=== PATIENT | male | born 1960 | race Caucasian/White ===

== ENCOUNTER 2024-02-20 06:39 | Day surgery (SDC) | payer BC, SELFPAY ==
[2024-02-20] VITALS (9 sets, daily range): BP systolic 117–144; BP diastolic 73–93; BMI 22.6
[2024-02-20 12:43] LABS: Glucose - Point of Care 95 mg/dl (70-99)
[2024-02-20] MEDS: NORMOSOL-R 1000 IV (12:43)
--- NOTE | 2024-02-20 14:48 | W.SUR.PREOP ---
Pre-Operative Surgical Note
-
I have examined this patient prior to the performance of the scheduled procedure.
The patient's condition is unchanged from the time of the current History and
Physical and the patient is able to undergo the scheduled procedure.
--- NOTE | 2024-02-20 14:48 | W.IMMPOSTOP ---
Surgical Immed Post Op Note
-
Primary Surgeon: Dr. Jenni Malone DMD, MD
Assisting Surgeon: None
Pre-op Diagnosis: Benign maxillary cyst/lesion
Post-op Diagnosis: Benign maxillary cyst/lesion
Procedure Performed: Excisional biopsy of anterior maxillary well circumscribed radiolucent cyst/lesion with enucleation and curettage
Anesthesia Type: General anesthesia with oral ray ETT
Specimen / Cultures: Anterior maxillary cyst/lesion
Estimated Blood Loss: 5cc
Complications: None
Operative Findings: Excisional biopsy of anterior maxillary cyst/lesion
[2024-02-20 15:13] LABS: Glucose - Point of Care 107 mg/dl (70-99)
== END 2024-02-20 16:48 | disposition home or self-care (01) ==
LOC: SDS 06:39
PROVIDERS: ATTENDING PHYSICIAN Dentist Oral and Maxillofacial Surgery
DX: D16.4 Benign neoplasm of bones of skull and face (principal)
CPT/HCPCS: 21030; 88305; 82962

== ENCOUNTER → 2024-09-29 08:44 | Outpatient (REF) | payer MEDICARE, SELFPAY | LOC: PAVMRI 08:44 | PROVIDERS: ATTENDING PHYSICIAN Nurse Practitioner Family; FAMILY PHYSICIAN Internal Medicine | DX: M54.50 Low back pain, unspecified (principal) | CPT/HCPCS: 72148 ==

== ENCOUNTER → 2024-10-12 07:55 | Outpatient (REF) | payer MEDICARE, SELFPAY | LOC: HWRAD 07:55 | PROVIDERS: ATTENDING PHYSICIAN Internal Medicine Cardiovascular Disease; FAMILY PHYSICIAN Internal Medicine | DX: I71.40 Abdominal aortic aneurysm, without rupture, unspecified (principal) | CPT/HCPCS: 76770 ==

== ENCOUNTER → 2024-10-26 12:53 | Outpatient (REF) | payer MEDICARE, SELFPAY | LOC: RAD 12:53 | PROVIDERS: ATTENDING PHYSICIAN Surgery Vascular Surgery; FAMILY PHYSICIAN Internal Medicine | DX: R29.898 Other symptoms and signs involving the musculoskeletal system (principal) | CPT/HCPCS: 93925 ==

== ENCOUNTER → 2024-11-06 08:46 | Outpatient (REF) | payer MEDICARE, SELFPAY | LOC: RAD 08:46 | PROVIDERS: ATTENDING PHYSICIAN Surgery Vascular Surgery; FAMILY PHYSICIAN Internal Medicine | DX: I71.43 Infrarenal abdominal aortic aneurysm, without rupture (principal) | CPT/HCPCS: 74174; Q9967 ==

== ENCOUNTER → 2024-11-20 12:38 | Outpatient (REF) | payer MEDICARE, SELFPAY | LOC: PAVMRI 12:38 | PROVIDERS: FAMILY PHYSICIAN Internal Medicine | DX: K86.2 Cyst of pancreas (principal) | CPT/HCPCS: 74183; A9575 ==

== ENCOUNTER 2024-12-20 07:53 | Inpatient (IN) | payer MEDICARE, SELFPAY ==
[2024-12-17 10:56] VITALS: BMI 25.0
[2024-12-17 11:31] LABS: % Eosinophils 7.5 % (0-6); % Immature Granulocytes 0.4 % (0-0.5); % Lymphocytes 23.4 % (20.5-51.1); % Monocytes 10.4 % (1.7-9.3); % Neutrophils 57.3 % (42.2-75.2); Absolute Basophils 0.1 10^3/uL (0-0.2); Absolute Eosinophils 0.4 10^3/uL (0-0.7); Absolute Lymphocytes 1.2 10^3/uL (1.2-3.4); Absolute Monocytes 0.5 10^3/uL (0.1-0.6); Absolute Neutrophils 2.8 10^3/uL (1.4-6.5); Hematocrit 42.2 % (39.0-52.0); Hemoglobin 13.8 g/dL (13.0-18.0); Mean Corp Hgb Conc. 32.7 g/dL (33.0-37.0); Mean Corpuscular Hgb 29.9 pg (27.0-31.0); Mean Corpuscular Volume 91.3 fL (80.0-94.0); Mean Platelet Volume 9.7 fL (7.4-10.4); Nucleated Red Blood Cells % 0 % (-); Platelet Count 176 10^3/uL (130-400); Red Blood Cell Count 4.62 10^6/uL (4.70-6.10); Red Cell Dist. Width 12.9 % (11.5-14.5); White Blood Cell Count 4.9 10^3/uL (4.8-10.8)
[2024-12-17 11:40] LABS: INR 0.92; PT 12.7 Sec (11.4-14.6)
[2024-12-17 11:41] LABS: APTT 31.3 Sec (23.4-35.0)
[2024-12-17 12:11] LABS: Blood Urea Nitrogen 17 mg/dl (9-20); Calcium 10.1 mg/dl (8.4-10.2); Carbon Dioxide 31 mmol/L (22-30); Chloride 101 mmol/L (98-107); Estimated Creatinine Clearance 90 ml/min; Glucose 100 mg/dl (70-99); Sodium 140 mmol/L (135-145); eGFR > 60.00
[2024-12-20] VITALS (25 sets, daily range): BP systolic 113–135; BP diastolic 71–92; BMI 24.8
[2024-12-20] MEDS: PERIDEX 0.12% ORAL RINSE 15 ML PO (08:55)
[2024-12-20] MEDS: BACTROBAN NASAL 1 GRAM NASAL (08:55)
[2024-12-20] MEDS: NSS 500 IV (08:56)
[2024-12-20 09:20] LABS: Glucose - Point of Care 105 mg/dl (70-99)
--- NOTE | 2024-12-20 13:06 | W.SUR.POST ---
Surgical Immediate Post Op
Note
Pre Op Diagnosis: AAA
Post Op Diagnosis: AAA
Procedure Performed: EVAR
Primary Surgeon: Solitario
Assist: Edgard ROD
Anesthesia: General
Estimated Blood Loss: 25cc
Fluids: See anesthesia flowsheet
Drains/Shunts: None
Specimens/Cultures: None
Doppler/Duplex/Angio (Y/N): Yes
Complications: None
Operative Findings: No endoleak
[2024-12-20 14:13] LABS: INR 1.07; PT 14.4 Sec (11.4-14.6)
[2024-12-20 14:14] LABS: APTT 35.7 Sec (23.4-35.0)
[2024-12-20 14:16] LABS: Hematocrit 36.8 % (39.0-52.0); Hemoglobin 12.4 g/dL (13.0-18.0); Mean Corp Hgb Conc. 33.7 g/dL (33.0-37.0); Mean Corpuscular Hgb 30.4 pg (27.0-31.0); Mean Corpuscular Volume 90.2 fL (80.0-94.0); Mean Platelet Volume 9.7 fL (7.4-10.4); Platelet Count 146 10^3/uL (130-400); Red Blood Cell Count 4.08 10^6/uL (4.70-6.10); Red Cell Dist. Width 12.7 % (11.5-14.5); White Blood Cell Count 7.5 10^3/uL (4.8-10.8)
[2024-12-20 14:20] LABS: Blood Urea Nitrogen 14 mg/dl (9-20); Calcium 8.4 mg/dl (8.4-10.2); Carbon Dioxide 26 mmol/L (22-30); Chloride 107 mmol/L (98-107); Estimated Creatinine Clearance 101 ml/min; Glucose 124 mg/dl (70-99); Potassium 4.3 mmol/L (3.5-5.1); Sodium 138 mmol/L (135-145); eGFR > 60.00
--- NOTE | 2024-12-20 15:17 | OR.RPT ---
Operative Report
Operative Report
PROCEDURE DATE: 12/20/2024
Preoperative diagnosis: Saccular irregular abdominal aortic aneurysm/pseudoaneurysm.
Postoperative diagnosis: Same
Procedure:
1. Endovascular repair of abdominal aortic aneurysm with aortobiiliac endograft (Endologix AFX-2 [id number] bifurcated device) with proximal infrarenal endograft extension (Endologix A25-25/C75 V proximal aortic extension).
2. Percutaneous right common femoral artery closure with preclose technique.
3. Pro-glide percutaneous suture closure left common femoral artery puncture site.
4. Supervision and interpretation.
Surgeon: Solitario
Sports Broadcaster: AMMON Rene, required for all aspects of procedure including assistance with stent delivery/wire manipulation/closure.
Complications: None
Anesthesia: General
Fluoroscopy:
Time 10.9 minutes
Dose 127 mGy
DAP 37.58
Indications for procedure:
Abdominal aortic aneurysm with concerning saccular morphology, evidence of plaque rupture or pseudoaneurysm with very irregular morphology, raise concern for imminent or eventual rupture. Recommended endovascular repair. Risk/benefits/alternatives
also discussed. Patient understood all wish to proceed.
Description of procedure:
Patient was identified brought to the operating room placed on the table in supine position. After the adequate administration of anesthesia and perioperative antibiotics he was prepped and draped in the standard surgical fashion. A standard
preoperative timeout was undertaken and everybody was in agreement the plan. Bilateral common femoral artery access was obtained under direct duplex ultrasound guidance. 6 Dominican sheath was placed over 0.035 inch wire in the right groin. In the
left groin, 7 Dominican sheath was placed. A small 1 cm incision was made around the right sided sheath access, and blunt dissection was undertaken with hemostats to facilitate percutaneous suture delivery. Next, using the ProGlide suture system,
percutaneous sutures were deployed at the 10:00 and 2 o'clock position on the right side in the standard fashion. Suture strands were tagged outside the skin. I exchanged for a short 11 Dominican sheath in that right groin access over the wire.
Next, I advanced a pigtail catheter through the 11 Dominican sheath into the abdominal aorta. In order to gain better length measurements and decision for graft selection, and performed power injection aortography. This demonstrated patent infrarenal
aorta with patent bilateral renal arteries, the left renal artery being the lower. Saccular irregular aneurysm as noted on CT scan imaging. Based on my imaging, I felt we could try to use a single main body device but may need to extend more
proximally. Therefore, I next exchanged my right-sided 11 Dominican sheath for an Endologix 17 Dominican sheath which was advanced into the aorta under fluoroscopy.
I now loaded the [id number] bifurcated Endologix AFX graft ([id number]) onto the stiff wire (right sided access) and then advance the affixed contralateral wire through the AFX introducer sheath. The contralateral wire was snared through
the left sided access and brought out through the contralateral left side. The AFX 2 bifurcated device was transferred into the AFX introducer sheath and advanced under fluoroscopy until the distal limbs were above the aortic bifurcation thereby
releasing the limbs of the graft. Confirmation was again performed noting no evidence of wire wrap. With concomitant downward tension on the left sided through and through wire and the right sided main body, the bifurcated graft was seated on the
aortic bifurcation. I then pulled the rip cord to deploy the main body of the endograft. The yellow covering was then pulled over the left wire (contralateral wire) thereby deploying the contralateral iliac limb. Once this was done, a pigtail
catheter was advanced over the left sided contralateral wire access and forward pressure was applied while pulling the wire back to release the wire lock. The pigtail catheter was then advanced into the juxtarenal aorta. Of note, earlier the
patient had been given an appropriate dose of heparin.
Next the ipsilateral iliac limb deployment was completed by pinning the inner core and retracting the introducer sheath. Next, the inner core was retracted into the sheath. Power injection aortography was performed after using a Coda balloon to
balloon molded proximal seal and to the right iliac. Aortogram demonstrated good sealing proximally distally with no evidence of endoleak, and no further filling of the aneurysm sac. However given the proximal extent of the endograft and a
curvature of the aorta, I felt that extending up closer to the renal arteries would be of benefit to be beyond that area of curvature, and also to provide better coverage overall. Therefore, the sheath and inner core was then advanced into the
juxtarenal aorta. The inner core and delivery system was then removed maintaining the sheath in place. Next, we advanced the proximal aortic extension which was an infrarenal extension (A25-25/C75 V). Once this was positioned in the vicinity of
the renal arteries, power injection aortography was obtained. Bilateral renal arteries were marked on the screen (left was lower). Intentionally, the graft was initially unsheathed slightly high and then carefully pulled down so that it was
positioned about 2 cm inferior to left renal artery (I did not wish to challenge the renal artery given along neck here). Deployment/unsheathing then was completed, and delivery mechanism was removed from the sheath. The contralateral accessed
pigtail catheter had been pulled down and then readvanced into the suprarenal segment. Coda balloon was then inserted and proximal and distal seal zones and overlap seal zones balloon molded. Completion angiography now demonstrated excellent
positioning of the endograft with good filling of both renal arteries, good apposition of the proximal and distal seals, good filling of both internal and external iliac arteries. No filling of the aneurysm sac was noted. No endoleak was noted.
At this point I was very satisfied.
Next, I removed the right sided 17 Dominican sheath while cinching down the percutaneous sutures. Once hemostasis was noted the wire was then withdrawn, the knot was tightened with a knot pusher. Hemostasis was fully achieved. The knot was then
locked and the suture strands trimmed. On the left side, I exchanged the 7 Dominican sheath over a [employer] wire for a Pro-glide percutaneous suture delivery device. Pro-glide percutaneous suture was not was then cinched down to the artery. Knot was
pushed down with a knot pusher. The knot was locked. Hemostasis was fully achieved bilateral groins with good femoral pulses bilaterally. Protamine was given to reverse the heparin. The small right groin skin incisions was then closed with 4-0
Monocryl subcuticular stitch and Dermabond was applied. Dressing applied to left groin puncture site. Patient tolerated procedure well. He had palpable 2+ DP pulses bilaterally upon completion.
[2024-12-20] MEDS: NSS 1000 IV (16:34)
[2024-12-20 16:41] LABS: Glucose - Point of Care 137 mg/dl (70-99)
--- NOTE | 2024-12-20 17:02 | PTCARENOTE ---
Received pt from PACU. AOx3, drowsy. Reports mild 3/10 burning pain in martir groins. Martir groins noted, R groin Dermabond intact, L w/ gauze and Tegaderm c/d/i. Vascular checks wnl. A line w/ good waveform, NIBP 20 points lower than a line, wnl. Family
at bedside. Updated.
--- NOTE | 2024-12-20 18:45 | CON.INTV ---
Consultation
Consultation Request
Date/Time Consultation Requested: 12/20/2024 - 1300
Date/Time Consultation Performed: 12/20/2024 - 1328
Requesting Provider: MARCEL Campoverde
Performing Provider: Dr. Diamond
Reason for Consultation: s/p EVAR
Medical History
-
Chief Complaint: Elective EVAR
History of Present Illness:
64-year-old male non-smoker with a past medical history of hyperlipidemia, hypertension, CAD with history of stent to OM1, ED, history of bradycardia, AAA and VIKY on CPAP who presents for endovascular aortic aneurysm repair. Patient known to
vascular surgery service with last visit on 11/27/[address] Jerez. Patient has a known infrarenal abdominal aortic aneurysm. CTA abdomen/pelvis from 11/06/2024 showed a saccular aneurysm of the posterior aspect of the left side of the infrarenal
abdominal aorta measuring 10 x 2.6 x 2.2 cm with a 6.5 mm ulcerated plaque at the anterolateral aspect of the left side of the abdominal aorta just lateral to the KORY origin. Also a 12 mm ulcerated plaque just below the level of the saccular
aneurysm along the left posterolateral aspect of the aorta and a 13 mm ulcerated plaque at the posterior margin of the aorta. Vascular intervention was recommended and patient agreed to this procedure. Today he underwent an endovascular repair of
his abdominal aortic aneurysm with aortobiiliac endograft with proximal infrarenal endograft extension. There were no immediate complications. Patient was transferred to the ICU postoperatively for further care, and Web Marketing Specialist services consulted
for additional management/recommendations.
Patient arrived to the ICU at 1702 on 12/20/2024. When I saw the patient, he was resting in bed in no acute distress. Heart rate 62, BP 120/66 and saturating 92% on room air. He feels well, denying FRAUSTO, abdominal pain, shortness of pain, chest
pain, fevers or chills.
PMHx: CAD, hypertension, hyperlipidemia, DM type II, depression, VIKY on CPAP, glaucoma, fatty liver disease, ED, colonic polyps, heterozygous alpha 1 antitrypsin deficiency, history of Lyme disease
PSHx: PTCA stent in OM1, appendectomy, sinus surgery, tonsillectomy
Past Medical History
Past Medical History: Other (Above as per HPI)
Past Surgical History: Other (Above as per HPI)
Social History
Tobacco: Non-smoker
Alcohol: None
Drug: None
Personal:
Living: With Family
Family History
Family History: CAD (Sibling), Cancer (Father: Colon cancer) and Other (Father: Hyperlipidemia; Mother: Dementia)
Allergies / Home Medications
Allergies
Allergy/AdvReac Type Severity Reaction Status Date / Time
house dust Allergy Unknown Verified 12/20/24 08:29
lisinopril Allergy Unknown Verified 12/20/24 08:29
methylprednisolone Allergy Rash Verified 12/20/24 08:29
[From Solu-Medrol]
mold Allergy Unknown Verified 12/20/24 08:29
pollen extracts Allergy Unknown Verified 12/20/24 08:29
prednisone Allergy Rash Verified 12/20/24 08:29
Home Medications
�Medication �Instructions �Recorded �Confirmed �Last Taken �Type
coenzyme Q10 100 mg capsule (Co 100 mg PO DAILY 02/15/24 12/20/24 12/19/24 08:00 History
Q-10)
latanoprost 0.005 % eye drops 1 drp ophthalmic (eye) HS 02/15/24 12/20/24 12/19/24 21:00 History
metformin 1,000 mg tablet 1,000 mg PO BID 02/15/24 12/20/24 12/18/24 History
omega 4-kic-kvn-fish oil 1,000 mg 1 cap PO DAILY 02/15/24 12/20/24 12/19/24 08:00 History
(120 mg-180 mg) capsule (Fish Oil)
rosuvastatin 40 mg tablet 40 mg PO DAILY 02/15/24 12/20/24 12/19/24 08:00 History
silodosin 8 mg capsule 8 mg PO DAILY 02/15/24 12/20/24 12/19/24 08:00 History
timolol maleate (PF) 0.5 % eye 1 drp ophthalmic (eye) DAILY 02/15/24 12/20/24 12/19/24 08:00 History
drops in a dropperette
venlafaxine 75 mg capsule,extended 75 mg PO DAILY 02/15/24 12/20/24 12/19/24 08:00 History
release 24 hr
cholecalciferol (vitamin D3) 125 125 mcg PO DAILY 12/11/24 12/20/24 12/19/24 08:00 History
mcg (5,000 unit) tablet (Vitamin
D3)
ezetimibe 10 mg tablet 10 mg PO DAILY 12/11/24 12/20/24 12/19/24 08:00 History
ipratropium bromide 42 mcg (0.06 1 spray intranasal R BID 12/11/24 12/20/24 12/20/24 07:00 History
%) nasal spray
olopatadine 665 mcg-mometasone 25 2 spray intranasal BID 12/11/24 12/20/24 12/20/24 07:00 History
mcg/spray nasal spray (Ryaltris)
aspirin 81 mg chewable tablet 81 mg PO DAILY 12/20/24 12/20/24 12/20/24 07:00 History
Review of Systems
-
History Source: Patient
All other systems: Negative unless noted
Vitals / Labs / Diagnostic Testing
Vital Signs
Temp Pulse Resp BP Pulse Ox
98.6 F 59 12 132/80 96
12/20/24 16:15 12/20/24 17:30 12/20/24 17:30 12/20/24 17:30 12/20/24 17:30
Lab Data
12/20/24 13:48
12/20/24 13:48
Laboratory Results
12/20/24
13:48
PT 14.4
INR 1.07
APTT 35.7 H
Diagnostic Testing:
Physical Exam
-
HEENT: Normocephalic and Anicteric
Cardiovascular: S1/S2 and Peripheral Edema (negative)
Respiratory: Clear, Wheeze (negative), Rales (negative), Rhonchi (negative) and Non-Labored Respirations
GI: Soft, Non Distended, Non Tender and Normal Bowel Sounds
Neurology: AO x 3 and Tremors (negative)
Skin: Warm and Dry
General: Respiratory Distress (negative), Comfortable, Fever (negative) and Chills (negative)
Assessment
-
Assessment: 64-year-old male non-smoker with a past medical history of hyperlipidemia, hypertension, CAD with history of stent to OM1, ED, history of bradycardia, AAA and VIKY on CPAP who presents for endovascular aortic aneurysm repair. Patient
known to vascular surgery service with last visit on 11/27/[address] Jerez. Patient has a known infrarenal abdominal aortic aneurysm. CTA abdomen/pelvis from 11/06/2024 showed a saccular aneurysm of the posterior aspect of the left side of the
infrarenal abdominal aorta measuring 10 x 2.6 x 2.2 cm with a 6.5 mm ulcerated plaque at the anterolateral aspect of the left side of the abdominal aorta just lateral to the KORY origin. Also a 12 mm ulcerated plaque just below the level of the
saccular aneurysm along the left posterolateral aspect of the aorta and a 13 mm ulcerated plaque at the posterior margin of the aorta. Vascular intervention was recommended and patient agreed to this procedure. Today he underwent an endovascular
repair of his abdominal aortic aneurysm with aortobiiliac endograft with proximal infrarenal endograft extension. There were no immediate complications. Patient was transferred to the ICU postoperatively for further care, and Web Marketing Specialist services
consulted for additional management/recommendations.
Chronic conditions WAX PUMPER: CAD, hypertension, hyperlipidemia, DM type II, depression, VIKY on CPAP, glaucoma, fatty liver disease, ED, colonic polyps, heterozygous alpha 1 antitrypsin deficiency, history of Lyme disease
Impression:
#Saccular irregular abdominal aortic aneurysm/pseudoaneurysm s/p endovascular repair of AAA with aortobiiliac endograft with proximal infrarenal endograft extension (POD #0)
#Chronic anemia
#Chronic thrombocytopenia
#CAD with history of stent 211
#VIKY on CPAP
#Erectile dysfunction
#History of colon polyps
#Hypertension
#Hyperlipidemia
#DM type II
#History of Lyme disease
Plan:
Postoperative surgical intensive care unit monitoring
Supplemental oxygen as needed to maintain SpO2 >90-94%
prn nebulized bronchodilators � not currently bronchospastic
Incentive spirometry encouraged 10x per hour for at least 4 hrs a day
Aspiration precautions
Pain control
Encourage incentive spirometer q1hr while awake
Patient uses CPAP at home for VIKY � patient brought in his own machine and this should be used at night with sleep
Neuro and vascular checks per protocol
Maintain MAP>65
Replete electrolytes with K>4, Mg>2
Maintain euglycemia with goal BG 140-180
Vascular surgery following-correspondence and operative notes reviewed
Transfuse blood products as needed to keep Hb>7g/dL, and plt>50k (given post-operative status)
DVT prophylaxis
Early nutrition
Early mobilization
Critical care statement: A total of 44 minutes of critical care time was provided for this patient today. This includes management of unstable vital signs, evaluation of the patient at bedside, reviewing the patient's pertinent medical records
including radiographs, microbiology, laboratory evaluations, and discussion with primary team, consultants, pharmacy, nutrition, physical therapy, case management, charge nurse, critical care nursing, and respiratory therapy.
--- NOTE | 2024-12-20 20:00 | PTCARENOTE ---
rec`d pt at 1900 AAOx3. able to make needs known. bedrest. a line. PIVS w/ NS @80. +pulses with doppler. Q1h vascular checks continued. checked with previous shift RN. james. SR to SB on monitor. RA. call batres in reach, safe environment maintained.
[2024-12-20] MEDS: XALATAN OPHTHALMIC SOLUTION 1 DROP BOTH EYES (21:24)
[2024-12-20 22:00] LABS: Glucose - Point of Care 157 mg/dl (70-99)
--- NOTE | 2024-12-21 01:00 | PTCARENOTE ---
continued pulse checks. +pulses. no edema. pt resting in bed. call batres in reach, safe environment maintained.
[2024-12-21] MEDS: NSS 1000 IV (02:45)
[2024-12-21 04:24] LABS: Hemoglobin 12.2 g/dL (13.0-18.0); Mean Corp Hgb Conc. 33.9 g/dL (33.0-37.0); Mean Corpuscular Hgb 30.3 pg (27.0-31.0); Mean Corpuscular Volume 89.6 fL (80.0-94.0); Mean Platelet Volume 9.8 fL (7.4-10.4); Platelet Count 150 10^3/uL (130-400); Red Blood Cell Count 4.02 10^6/uL (4.70-6.10); Red Cell Dist. Width 12.7 % (11.5-14.5); White Blood Cell Count 9.2 10^3/uL (4.8-10.8)
[2024-12-21 04:54] LABS: Blood Urea Nitrogen 16 mg/dl (9-20); Carbon Dioxide 23 mmol/L (22-30); Chloride 108 mmol/L (98-107); Estimated Creatinine Clearance 101 ml/min; Glucose 152 mg/dl (70-99); Potassium 4.4 mmol/L (3.5-5.1); Sodium 139 mmol/L (135-145); eGFR > 60.00
[2024-12-21 04:55] LABS: INR 1.02; PT 13.9 Sec (11.4-14.6)
[2024-12-21 04:56] LABS: APTT 29.8 Sec (23.4-35.0)
[2024-12-21 05:27] VITALS: BMI 24.9
[2024-12-21 05:34] LABS: Hepatitis C Antibody Negative (Negative)
[2024-12-21] MEDS: HEPARIN 5000 UNITS SC (07:48)
[2024-12-21] MEDS: EFFEXOR XR 75 MG PO (07:55)
[2024-12-21] MEDS: LOW STRENGTH ASPIRIN 81 MG PO (07:55)
[2024-12-21] MEDS: CRESTOR 40 MG PO (07:55)
[2024-12-21] MEDS: TYLENOL 650 MG PO (07:55)
[2024-12-21] MEDS: FLOMAX 0.4 MG PO (07:55)
[2024-12-21] MEDS: VITAMIN D3 (cholecalciferol) 125 MCG PO (07:55)
[2024-12-21] MEDS: ZETIA 10 MG PO (07:55)
[2024-12-21] MEDS: TIMOPTIC 0.5% OPHTHALMIC SOLUTION 1 DROP BOTH EYES (07:56)
[2024-12-21 07:58] LABS: Glucose - Point of Care 108 mg/dl (70-99)
--- NOTE | 2024-12-21 08:19 | W.PN.VS ---
Addendum entered and electronically signed by Juan Jerez MD 12/21/24 08:54:
Seen and examined with AMMON Jiang. Agree with findings as noted below. Patient feels well overall. No complaints. No abdominal or back pain. On exam/he is awake and alert. Breathing is unlabored. Abdomen is soft, nondistended, nontender.
Right groin flat, small incision clean dry and intact. No hematoma. Left groin flat, dressing clean dry and intact, no hematoma. Feet are both warm with palpable pedal pulses. Plan/as discussed and noted below.
Original Note:
Today's Communication / Plan
-
Seen and assessed with Dr. Jerez
Assessment/Plan
-
POD 1 EVAR
Plan:
-DC IV fluids
-DC A-line
-DC Ruff
-Out of bed/ambulate
-P.o. meds
-Increase diet
-Likely home later today
Subjective Data
-
Date of Service: December 21, 2024
Patient stated bedside exam with Dr. Jerez. Patient offers no complaints at this time. No events overnight.
Objective Data
-
Vital Signs
Temp Pulse Resp BP Pulse Ox
98.2 F 59 26 135/84 98
12/21/24 07:30 12/21/24 07:15 12/21/24 07:15 12/20/24 19:00 12/21/24 07:15
Intake and Output
12/20/24 12/21/24 12/22/24
06:59 06:59 06:59
Intake Total 1040 / 1120 80 / 80
Output Total 2650 / 2650
Balance -1610 / -1530 80 / 80
Intake:
IV fluids (Total) 1040 / 1120 80 / 80
Nss 1,000 ml @ 80 mls/hr IV . 1040 / 1120 80 / 80
[id number] [facility] Rx#:[id number]
Output:
Urine, Ruff 2650 / 2650
Lab Results
12/21/24 04:09
12/21/24 04:09
Calcium 9.0 mg/dl (8.4-10.2) 12/21/24 04:09
Physical Exam
-
AAOx3
No tachypnea on room air
No tachycardia
Abdomen soft and nontender
Groin sites clean, dry, intact, soft, flat
Bilateral feet warm and pink
--- NOTE | 2024-12-21 08:20 | W.PN.INTV ---
Today's Communication / Plan
Recommendations
Up OOB as tolerated
Encouraged incentive spirometer
Pain control
Outpatient follow-up with vascular surgery
Patient being prepared for discharge home. No additional recommendations at this time. Service Inspector/Pulmonary service will now sign off. Please reconsult if there are any additional questions/concerns, or if patient's respiratory status
deteriorates.
Assessment
-
Assessment: 64-year-old male non-smoker with a past medical history of hyperlipidemia, hypertension, CAD with history of stent to OM1, ED, history of bradycardia, AAA and VIKY on CPAP who presents for endovascular aortic aneurysm repair. Patient
known to vascular surgery service with last visit on 11/27/[address] Jerez. Patient has a known infrarenal abdominal aortic aneurysm. CTA abdomen/pelvis from 11/06/2024 showed a saccular aneurysm of the posterior aspect of the left side of the
infrarenal abdominal aorta measuring 10 x 2.6 x 2.2 cm with a 6.5 mm ulcerated plaque at the anterolateral aspect of the left side of the abdominal aorta just lateral to the KORY origin. Also a 12 mm ulcerated plaque just below the level of the
saccular aneurysm along the left posterolateral aspect of the aorta and a 13 mm ulcerated plaque at the posterior margin of the aorta. Vascular intervention was recommended and patient agreed to this procedure. Today he underwent an endovascular
repair of his abdominal aortic aneurysm with aortobiiliac endograft with proximal infrarenal endograft extension. There were no immediate complications. Patient was transferred to the ICU postoperatively for further care, and Service Inspector services
consulted for additional management/recommendations.
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
Impression:
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
#Chronic anemia
#Chronic thrombocytopenia
#CAD with history of stent 211
#VIKY on CPAP
#Erectile dysfunction
#History of colon polyps
#Hypertension
#Hyperlipidemia
#DM type II
#History of Lyme disease
Plan:
Postoperative surgical intensive care unit monitoring
Supplemental oxygen as needed to maintain SpO2 >90-94%
prn nebulized bronchodilators � not currently bronchospastic
Incentive spirometry encouraged 10x per hour for at least 4 hrs a day
Aspiration precautions
Pain control
Encourage incentive spirometer q1hr while awake
Patient uses CPAP at home for VIKY � patient brought in his own machine and this should be used at night with sleep while hospitalized
Neuro and vascular checks per protocol
Maintain MAP>65
Replete electrolytes with K>4, Mg>2
Maintain euglycemia with goal BG 140-180
Vascular surgery following-correspondence and operative notes reviewed
Transfuse blood products as needed to keep Hb>7g/dL, and plt>50k (given post-operative status)
DVT prophylaxis
Early nutrition
Early mobilization
Patient being prepared for discharge home. No additional recommendations at this time. Service Inspector/Pulmonary service will now sign off. Thank you for allowing us to be involved in the care of this patient. Please reconsult if there are any
additional questions/concerns, or if patient's respiratory status deteriorates.
Total time spent today was 42 minutes for this encounter. Time includes reviewing laboratory test/imaging results, reviewing pertinent medical records, obtaining and reviewing medical history, performing an appropriate exam, ordering medications,
tests and procedures. Time also includes documentation of this encounter, coordinating patient care and communicating with other healthcare professionals. Total time does not include separately billed tests performed on this date of service.
Subjective Dataa
Subjective Data
Date of Service:
Date of Service: December 21, 2024
Chief Complaint: Service Inspector Follow Up
Subjective:
Patient doing well today. No acute events reported from overnight. Really no complaints and he feels well overall. Eager to go home. Denies chest pain, FRAUSTO, nausea, SOB, fevers or chills.
Review of Systems
General: Other (Negative unless mentioned above)
Objective Data
Data Reviewed
Vital Signs / I&O / Oxygen:
Vital Signs
Temp Pulse Resp BP Pulse Ox
98.2 F 59 26 135/84 99
12/21/24 07:30 12/21/24 07:15 12/21/24 07:15 12/20/24 19:00 12/21/24 08:00
Intake and Output
12/20/24 12/21/24 12/22/24
06:59 06:59 06:59
Intake Total 1040 / 1120 360 / 360
Output Total 2650 / 2650 400 / 400
Balance -1610 / -1530 -40 / -40
SaO2 99
Physical Exam
General: Respiratory Distress (negative), Comfortable, Chills (negative) and Sweats (negative)
HEENT: Normocephalic and Anicteric
Cardiovascular: S1-S2, Rub (negative) and Peripheral Edema (negative)
Respiratory: Clear, Wheeze (negative), Crackles (negative), Rhonchi (negative) and Accessory Resp Muscle Use (negative)
GI: Soft, Non Distended, Non Tender and Normal Bowel Sounds
Neurology: AO x 3 and Tremors (negative)
Skin: Warm, Dry, Cyanosis (negative) and Jaundice (negative)
Labs/Micro/Reports
Lab Data
12/21/24 04:09
12/21/24 04:09
Laboratory Results
12/20/24 12/21/24
13:48 04:09
PT 14.4 13.9
INR 1.07 1.02
APTT 35.7 H 29.8
--- NOTE | 2024-12-21 08:36 | PTCARENOTE ---
recd pt handoff in room 0700, pleasant cooperative, see assessment. notes back pain much improved, med with tylenol for primarily discomfort r/t removal james. Seen by vascular team, updated, IV capped, james removed. ordered and eating breakfast,
took am meds easily and well. aware of plans for rest of day. call batres in reach. palpable pulses, L groin gauze intact, R groin exofin/surgical glue intact.
[2024-12-21 09:20] VITALS: BP 122/79
[2024-12-21 11:19] VITALS: BP 134/84
--- NOTE | 2024-12-21 11:27 | CM ---
CM following re: discharge planning.
Reviewed pt's chart, met with pt.
Pt is a 64 year old male, admitted with primary dx of POD 1 EVAR. per vascular surgery, likely discharge home today. pt is aware, expressed his agreement and he stated his spouse will transport home. IMM reviewed, placed on chart, pt has a copy.
Pt reports he lives with spouse 2SH, 1 step to enter, has 3 supportive children and a cat. 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 No DME, VN or SNF history.
PCP: Queta Wemes
Pharmacy: [facility]
D/C plan: home no needs. Spouse to transport.
--- NOTE | 2024-12-21 11:32 | PTCARENOTE ---
ambulated half lap of ICU. small amount ooze from R groin, vascular team aware. voided coleen/yellow, additional fluids given PO. presently in chair, ordered and awaiting lunch.
[2024-12-21 11:50] LABS: Glucose - Point of Care 141 mg/dl (70-99)
[2024-12-21 12:32] VITALS: BP 118/75
--- NOTE | 2024-12-21 12:44 | W.DS.TRANS ---
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
-
Discharge Instructions:
Discharge Diagnosis/Procedures EVAR
Diet As tolerated
Activity No strenuous activity
Driving Restrictions No driving for 2 weeks
Bathing Restrictions OK to Shower
Instructions:
Stand-Alone Forms: DC Instr - Vascular OR
Changes to Home Medications: No
Discharge Medications:
DC Medications w/original date entered in [facility]
coenzyme Q10 100 mg capsule (Co Q-10) 100 mg PO DAILY Supplement 02/15/24
latanoprost 0.005 % eye drops 1 drp ophthalmic (eye) HS Eye Condition 02/15/24
metformin 1,000 mg tablet 1,000 mg PO BID Diabetes 02/15/24
omega 2-jlq-dss-fish oil 1,000 mg (120 mg-180 mg) capsule (Fish Oil) 1 cap PO DAILY Supplement 02/15/24
rosuvastatin 40 mg tablet 40 mg PO DAILY High Cholesterol 02/15/24
silodosin 8 mg capsule 8 mg PO DAILY BPH 02/15/24
timolol maleate (PF) 0.5 % eye drops in a dropperette 1 drp ophthalmic (eye) DAILY Eye Condition 02/15/24
venlafaxine 75 mg capsule,extended release 24 hr 75 mg PO DAILY Mental Health/Anxiety 02/15/24
cholecalciferol (vitamin D3) 125 mcg (5,000 unit) tablet (Vitamin D3) 125 mcg PO DAILY Supplement 12/11/24
ezetimibe 10 mg tablet 10 mg PO DAILY High Cholesterol 12/11/24
ipratropium bromide 42 mcg (0.06 %) nasal spray 1 spray intranasal R BID Allergies 12/11/24
olopatadine 665 mcg-mometasone 25 mcg/spray nasal spray (Ryaltris) 2 spray intranasal BID Allergies 12/11/24
aspirin 81 mg chewable tablet 81 mg PO DAILY Blood Clot Prevention/Tx 12/20/24
Home Medication Changes
Pending Results: No
--- NOTE | 2024-12-21 13:42 | PTCARENOTE ---
discharged. DIRECT MAIL MANAGER Dreger in to speak with family prior to leaving re: wound care and R fem site. questions answered. left in good spirits.
== END 2024-12-21 13:54 | disposition home or self-care (01) | DRG 269 ==
LOC: ICU 07:53
PROVIDERS: Nurse Practitioner Acute Care; ADMITTING PHYSICIAN Surgery Vascular Surgery; CONSULT PHYSICIAN Internal Medicine Critical Care Medicine; PRIMARYCARE PHYSICIAN Internal Medicine
PROC: 04V03DZ Restriction of Abdominal Aorta with Intraluminal Device, Percutaneous Approach (ICD-10-PCS; 2024-12-20)
DX: I71.43 Infrarenal abdominal aortic aneurysm, without rupture (principal); G47.33 Obstructive sleep apnea (adult) (pediatric); I10 Essential (primary) hypertension; E78.5 Hyperlipidemia, unspecified; I25.10 Atherosclerotic heart disease of native coronary artery without angina pectoris; E11.9 Type 2 diabetes mellitus without complications; E88.01 Alpha-1-antitrypsin deficiency; F32.A Depression, unspecified; H40.9 Unspecified glaucoma; Z86.19 Personal history of other infectious and parasitic diseases; K76.0 Fatty (change of) liver, not elsewhere classified; K63.5 Polyp of colon; D69.6 Thrombocytopenia, unspecified; N52.9 Male erectile dysfunction, unspecified; D64.9 Anemia, unspecified; Z95.5 Presence of coronary angioplasty implant and graft; Z86.0100 Personal history of colon polyps, unspecified
CPT/HCPCS: 34705; 34713; 36415; 71045; 71046; 80048; 82962; 85025; 85027; 85610; 85730; 86803; 86850; 86900; 86901; 93005; C1760; C1769; C1773; C1892; C1894; C2628

== ENCOUNTER → 2025-01-08 14:02 | Outpatient (REF) | payer MEDICARE, SELFPAY | LOC: RAD 14:02 | PROVIDERS: ATTENDING PHYSICIAN Physician Assistant; FAMILY PHYSICIAN Internal Medicine | DX: R29.898 Other symptoms and signs involving the musculoskeletal system (principal); I71.43 Infrarenal abdominal aortic aneurysm, without rupture | CPT/HCPCS: 74174; Q9967 ==

== ENCOUNTER → 2025-04-22 08:17 | Outpatient (REF) | payer MEDICARE, SELFPAY | LOC: RAD 08:17 | PROVIDERS: ATTENDING PHYSICIAN Physical Medicine & Rehabilitation; FAMILY PHYSICIAN Internal Medicine | DX: M54.50 Low back pain, unspecified (principal); G89.29 Other chronic pain | CPT/HCPCS: 78803; A9503 ==

== ENCOUNTER → 2025-04-23 08:15 | Outpatient (REF) | payer MEDICARE, SELFPAY | LOC: RAD 08:15 | PROVIDERS: ATTENDING PHYSICIAN Internal Medicine Cardiovascular Disease; FAMILY PHYSICIAN Internal Medicine | DX: I77.9 Disorder of arteries and arterioles, unspecified (principal); I25.10 Atherosclerotic heart disease of native coronary artery without angina pectoris | CPT/HCPCS: 93880 ==

== ENCOUNTER 2025-04-25 06:41 | Day surgery (SDC) | payer MEDICARE, SELFPAY ==
[2025-04-25 07:49] LABS: Glucose - Point of Care 110 mg/dl (70-99)
== END 2025-04-25 09:54 | disposition home or self-care (01) ==
LOC: GI 06:41
PROVIDERS: ATTENDING PHYSICIAN Internal Medicine
DX: Z12.11 Encounter for screening for malignant neoplasm of colon (principal); K64.9 Unspecified hemorrhoids; K57.30 Diverticulosis of large intestine without perforation or abscess without bleeding; Z86.0101 Personal history of adenomatous and serrated colon polyps
CPT/HCPCS: G0105; 82962

== ENCOUNTER → 2025-06-27 07:42 | Outpatient (REF) | payer MEDICARE, SELFPAY | LOC: HWRCS 07:42 | PROVIDERS: ATTENDING PHYSICIAN Internal Medicine Cardiovascular Disease; FAMILY PHYSICIAN Internal Medicine | DX: R42 Dizziness and giddiness (principal); I25.10 Atherosclerotic heart disease of native coronary artery without angina pectoris | CPT/HCPCS: 78452; 93017; A9500; J2785 ==

== ENCOUNTER → 2025-07-01 07:02 | Outpatient (REF) | payer MEDICARE, SELFPAY | LOC: RCS 07:02 | PROVIDERS: ATTENDING PHYSICIAN Internal Medicine Cardiovascular Disease; FAMILY PHYSICIAN Internal Medicine | DX: R42 Dizziness and giddiness (principal); I25.10 Atherosclerotic heart disease of native coronary artery without angina pectoris | CPT/HCPCS: 93306 ==

== ENCOUNTER 2025-07-08 09:31 | Day surgery (SDC) | payer MEDICARE, SELFPAY ==
[2025-07-08] VITALS (29 sets, daily range): BP systolic 116–158; BP diastolic 76–90; BMI 25.3
[2025-07-08 10:25] LABS: Glucose - Point of Care 101 mg/dl (70-99)
[2025-07-08] MEDS: NSS 254 ML IV (10:50)
[2025-07-08 12:16] LABS: ACT-LR - POC 242 Seconds (116-155)
[2025-07-08] MEDS: NSS 1000 IV (12:45)
[2025-07-08 13:10] LABS: Glucose - Point of Care 109 mg/dl (70-99)
--- NOTE | 2025-07-08 23:10 | ITS.CL.CATH ---
Drafter Assistant - Catheterization
Cardiac Catheterization
Procedure Report:
LEFT HEART CATHETERIZATION
Date of Procedure: July 08, 2025
Referring: Dr. Urvashi Sanchez
PROCEDURES:
1. Left heart catheterization with coronary and single-plane left ventriculography
2. Hemodynamic assessment of the LAD with the IFR serially measuring below the ischemic threshold at 0.87, 0.88, and 0.87
INDICATION: This is a 64-year-old gentleman with a past medical history notable for type 2 diabetes, hypertension, hyperlipidemia, peripheral vascular disease with endovascular repair of abdominal aortic aneurysm (Dr. Motta) and prior coronary
artery disease with stenting of first obtuse marginal branch in 2005. He has experienced a recent change in functional capacity with exertional dyspnea and dizziness. A recent stress study was notable for a poor exercise capacity achieving 78% of
predicted maximal heart rate with ST depression and ischemia involving the anterolateral and inferoseptal territories. He is now referred for coronary angiography.
ACCESS: Right radial artery, 6 Kiswahili sheath
HEMODYNAMICS : (mmHg)
AO (s/d) : 131/77, 99
LV (s/d) : 128/12
LVEDP : 26
CORONARY FINDINGS
DOMINANCE: Left
LEFT MAIN: Normal
LEFT ANTERIOR DESCENDING: The LAD is moderately to heavily calcified over its course. The LAD arises normally from the left main running in the anterior interventricular groove. The proximal LAD near the origin of the first septal paving crew foreman has a
heavily calcified 50% stenosis followed by a calcified 50% stenosis near a terminal diagonal branch. The iFR in the LAD measured below the ischemic threshold at 0.87, 0.88, and 0.87. A slow pullback demonstrated step up both across the more distal
and more proximal calcified stenoses. The Pd/Pa at the guide catheter measured 0.99 suggesting no baseline drift. The distal LAD wraps completely around the apex.
CIRCUMFLEX: The circumflex is a large-caliber dominant vessel arising very proximally. There is a eccentric 99% ostial stenosis. The stent in the midportion of the OM1 has a 50% stenosis on the distal edge of the stent. OM 2 arises near the
origin of OM1 and is a medium caliber vessel with luminal irregularities. OM 3 is large with a 70% proximal stenosis and 50% mid stenosis. The circumflex continues in the AV groove with a 60% distal narrowing. The PDA is now 100% (2006 angiogram
image #3)
RIGHT CORONARY ARTERY: Small nondominant artery that is chronically occluded proximally with bridging collaterals to a small distal vessel
VENTRICULOGRAPHY: Left ventriculography is performed in an [place] projection. At the digital single-plane left ventricular ejection fraction is estimated at 60%
SEDATION: 36 minutes of procedural sedation was utilized. An independent medical billing service was present to assist with and help manage the patient's level of consciousness and physiologic status.
RADIATION SUMMARY: Fluoro Time (min): 10.4, Dose (mGy): 562.7, DAP (Gy.cm2) : 39.5
Closure Device: TR band
CONCLUSIONS
1. Multivessel coronary artery disease with heavily calcified tandem proximal-mid LAD, mid LAD, OM1, and large OM 3 as well as the distal circumflex / PDA if felt to be a suitable target.
2. Preserved LV systolic function
RECOMMENDATIONS
1. Consult CT surgery to consider surgical revascularization of the LAD, OM1, OM 3, and distal circumflex / PDA
Copy to: Dr. Urvashi Sanchez
== END 2025-07-08 17:20 | disposition home or self-care (01) ==
LOC: CATH 09:31
PROVIDERS: ATTENDING PHYSICIAN Internal Medicine Interventional Cardiology; FAMILY PHYSICIAN Internal Medicine; OTHER PHYSICIAN Internal Medicine Cardiovascular Disease
DX: I25.10 Atherosclerotic heart disease of native coronary artery without angina pectoris (principal); I10 Essential (primary) hypertension; E78.5 Hyperlipidemia, unspecified; E11.51 Type 2 diabetes mellitus with diabetic peripheral angiopathy without gangrene; Z79.82 Long term (current) use of aspirin; Z79.84 Long term (current) use of oral hypoglycemic drugs; Z79.899 Other long term (current) drug therapy; Z95.5 Presence of coronary angioplasty implant and graft
CPT/HCPCS: 93799; 82962; 85347; 93458; 99152; 99153; C1769; C1894; Q9967

== ENCOUNTER → 2025-07-24 12:57 | Outpatient (REF) | payer MEDICARE, SELFPAY | LOC: RAD 12:57 | PROVIDERS: ATTENDING PHYSICIAN Thoracic Surgery (Cardiothoracic Vascular Surgery); FAMILY PHYSICIAN Internal Medicine | DX: I34.81 Nonrheumatic mitral (valve) annulus calcification (principal) | CPT/HCPCS: 71275; 74174; Q9967 ==

== ENCOUNTER 2025-07-26 05:08 | Inpatient (IN) | payer MEDICARE, SELFPAY ==
[2025-07-23 08:50] VITALS: BMI 24.2
[2025-07-23 09:08] LABS: Hematocrit 41.2 % (39.0-52.0); Hemoglobin 13.2 g/dL (13.0-18.0); Mean Corp Hgb Conc. 32.0 g/dL (33.0-37.0); Mean Corpuscular Volume 89.6 fL (80.0-94.0); Nucleated Red Blood Cells % 0 % (-); Platelet Count 180 10^3/uL (130-400); Red Cell Dist. Width 13.2 % (11.5-14.5)
[2025-07-23 09:14] LABS: Urine Character Clear (Clear)
[2025-07-23 09:15] LABS: INR 0.95; PT 13.0 Sec (11.4-14.6)
[2025-07-23 09:29] LABS: AST (SGOT) 24 U/L (17-59); Albumin 4.9 g/dl (3.5-5.0); Alkaline Phosphatase 45 U/L (38-126); Blood Urea Nitrogen 14 mg/dl (9-20); Calcium 9.7 mg/dl (8.4-10.2); Carbon Dioxide 31 mmol/L (22-30); Chloride 102 mmol/L (98-107); Estimated Creatinine Clearance 91 ml/min; Glucose 116 mg/dl (70-99); Potassium 4.1 mmol/L (3.5-5.1); Sodium 140 mmol/L (135-145); Total Protein 7.7 g/dl (6.3-8.2); eGFR > 60.00
[2025-07-23 09:38] LABS: ALT (SGPT) 23 U/L (0-50)
[2025-07-23 09:42] LABS: Glycohemoglobin (HgbA1c) 5.9 % (4.0-5.6)
--- NOTE | 2025-07-23 09:51 | CM ---
Chart reviewed. Patient is independent of ADLS, lives with his in a 2 STH, 1st level set up, 2 STANLEY, 0 DME. Patient wears CPAP at bedtime. Patient is agreeable to a home visit by CT Transitional RN. Reviewed preoperative and postoperative
instructions and restrictions, along with showering guidelines. Gave patient 2 soaps. Plan is for the patient to return home with CT Transitional RN.
[2025-07-23 11:12] LABS: Urine Urothelial Cell 0-2 /LPF (FEW)
[2025-07-23 11:14] LABS: Urine Red Blood Cell 0-2 /HPF (0-2)
[2025-07-26 05:13] VITALS: BMI 23.6
[2025-07-26 05:14] VITALS: BP 138/91
[2025-07-26 05:15] VITALS: BP 129/84
[2025-07-26] MEDS: LOPRESSOR 25 MG PO (05:29)
[2025-07-26] MEDS: BACTROBAN 2% OINTMENT 1 APPLIC NASAL ×2 (05:29→19:55)
[2025-07-26] MEDS: MAGNESIUM OXIDE 400 MG PO (05:29)
[2025-07-26] MEDS: PROTONIX 40 MG PO (05:29)
--- NOTE | 2025-07-26 05:30 | PTCARENOTE ---
pt admitted into room 2263. VS and weight obtained. pt confirms 2 showers @ home and NPO since midnight. admission questions and med rec completed. clip prep and CHG cloth bath done. pre-op meds given.
--- NOTE | 2025-07-26 06:14 | W.CVOR.SURPR ---
CVOR Surgeon Immed Pre Op
-
I have examined this patient prior to performance of the scheduled procedure.
The patient's condition is unchanged from the time of the dictated/written History and
Physical and the patient is able to undergo the scheduled procedure.
CABG + LAAE
[2025-07-26 07:25] LABS: Urine Character Clear (Clear)
[2025-07-26 07:36] LABS: ACT+ - POC 134 Seconds (82-134)
[2025-07-26 07:38] LABS: Urine Squamous Cell 0-2 /LPF (Few)
[2025-07-26 07:39] LABS: Urine Red Blood Cell 21-25 /HPF (0-2); Urine White Cell 0-2 /HPF (0-5)
[2025-07-26 09:03] LABS: B.E. - POC 2.7 mmol/L; Glucose - POC 106 mg/dl (70-99); HCO3 - POC 27 mmol/L (21-28); Hematocrit - POC 33 % PCV (42-52); Hemodilution- POC No; Hemoglobin Calculated - POC 11.3; Ionized Calcium - POC 1.19 mmol/L (1.15-1.33); Lactate - POC 1.91 mmol/L (0.36-0.75); O2 Saturation %Calculated-POC 99.9 % (94-98); PCO2 - POC 41 mmHg (35-48); PO2 - POC 258 mmHg (83-108); POC Comment CPB; Potassium - POC 4.0 mmol/L (3.5-5.1); Sodium - POC 139 mmol/L (136-145); Specimen Type - POC Arterial; pH - POC 7.43 (7.35-7.45)
[2025-07-26 09:06] LABS: ACT+ - POC 998 Seconds (82-134)
[2025-07-26 09:21] LABS: ACT+ - POC 732 Seconds (82-134)
[2025-07-26 09:34] LABS: B.E. - POC 4.9 mmol/L; Glucose - POC 117 mg/dl (70-99); HCO3 - POC 29 mmol/L (21-28); Hematocrit - POC 28 % PCV (42-52); Hemodilution- POC Yes; Hemoglobin Calculated - POC 9.6; Ionized Calcium - POC 1.01 mmol/L (1.15-1.33); Lactate - POC 2.44 mmol/L (0.36-0.75); O2 Saturation %Calculated-POC 99.9 % (94-98); PCO2 - POC 43 mmHg (35-48); PO2 - POC 288 mmHg (83-108); POC Comment CPB; Potassium - POC 5.3 mmol/L (3.5-5.1); Sodium - POC 139 mmol/L (136-145); Specimen Type - POC Arterial; pH - POC 7.45 (7.35-7.45)
[2025-07-26 09:47] LABS: ACT+ - POC 632 Seconds (82-134)
[2025-07-26 10:07] LABS: B.E. - POC 5.0 mmol/L; Glucose - POC 166 mg/dl (70-99); HCO3 - POC 29 mmol/L (21-28); Hematocrit - POC 28 % PCV (42-52); Hemodilution- POC Yes; Hemoglobin Calculated - POC 9.6; Ionized Calcium - POC 1.05 mmol/L (1.15-1.33); Lactate - POC 2.82 mmol/L (0.36-0.75); O2 Saturation %Calculated-POC 99.9 % (94-98); PCO2 - POC 42 mmHg (35-48); PO2 - POC 318 mmHg (83-108); POC Comment CPB; Potassium - POC 5.7 mmol/L (3.5-5.1); Sodium - POC 139 mmol/L (136-145); Specimen Type - POC Arterial; pH - POC 7.46 (7.35-7.45)
[2025-07-26 10:17] LABS: ACT+ - POC 517 Seconds (82-134)
[2025-07-26] MEDS: ANCEF 10 IV ×2 (10:41→12:26)
[2025-07-26 10:43] LABS: B.E. - POC 2.4 mmol/L; Glucose - POC 122 mg/dl (70-99); HCO3 - POC 27 mmol/L (21-28); Hematocrit - POC 29 % PCV (42-52); Hemodilution- POC Yes; Hemoglobin Calculated - POC 9.7; Ionized Calcium - POC 0.97 mmol/L (1.15-1.33); Lactate - POC 2.89 mmol/L (0.36-0.75); O2 Saturation %Calculated-POC 99.9 % (94-98); PCO2 - POC 42 mmHg (35-48); PO2 - POC 346 mmHg (83-108); POC Comment WARM; Potassium - POC 4.6 mmol/L (3.5-5.1); Sodium - POC 146 mmol/L (136-145); Specimen Type - POC Arterial; pH - POC 7.42 (7.35-7.45)
[2025-07-26 10:47] LABS: ACT+ - POC 192 Seconds (82-134)
[2025-07-26 10:59] LABS: ACT+ - POC 123 Seconds (82-134)
[2025-07-26 11:15] LABS: B.E. - POC -0.5 mmol/L; Glucose - POC 99 mg/dl (70-99); HCO3 - POC 25 mmol/L (21-28); Hematocrit - POC 23 % PCV (42-52); Hemodilution- POC Yes; Hemoglobin Calculated - POC 8.0; Ionized Calcium - POC 1.16 mmol/L (1.15-1.33); Lactate - POC 2.75 mmol/L (0.36-0.75); O2 Saturation %Calculated-POC 99.9 % (94-98); PCO2 - POC 45 mmHg (35-48); PO2 - POC 326 mmHg (83-108); Potassium - POC 3.8 mmol/L (3.5-5.1); Sodium - POC 144 mmol/L (136-145); Specimen Type - POC Arterial; pH - POC 7.36 (7.35-7.45)
--- NOTE | 2025-07-26 11:20 | CM ---
Chart reviewed. Patient is in the OR today. Patient is independent of ADLS, lives with his in a 2 STH, 1st level set up, 2 STANLEY, 0 DME. Plan is for the patient to return home with CT Transitional RN. CM to follow
--- NOTE | 2025-07-26 11:28 | W.PN.CT.SURG ---
CT Surgery Operative Note
-
CARDIAC SURGERY OPERATIVE REPORT
Preoperative Diagnosis: Multivessel Coronary Artery Disease with a positive stress test
Postoperative Diagnosis: Same
Procedure(s) Performed:
1. Standard Sternotomy with Aortic and Right Atrial Cannulation
2. Internal Mammary Artery Harvesting, Left
3. Multi Arterial Coronary artery bypass grafting x 4 (In situ CORDERO to LAD, Ao to Radial to OM1 sequential to OM3, Ao to RSVG to LPL)
4. Endoscopic vein harvesting of right lower extremity
5. Transesophageal echocardiography
6. Placement of Temporary Ventricular Pacing Wires
7. Left atrial appendage exclusion
Date of Surgery: 07/26/2025
Comorbidities:
1. Multi vessel CAD with prior stents
2. Positive stress test
3. Hypertension
4. Hyperlipidemia
5. Type 2 diabetes
6. VIKY on CPAP
7. Glaucoma
8. ED
9. Alpha 1 antitypsin deficiency
10. Lyme disease
11. BPH
Attending Surgeon: Edward Martinez MD, MS
Assistants: Mary Munguia PA-C (present and necessary to training program assistant, endoscopic vein harvest, retraction, suction, exposure, suture management, and wound closure under my direction), Edward Hernandez PA-C (simultaneous radial artery harvest)
Anesthesiology: Bryon Amor MD and Nai Bennett CRNA
Scrub and Circulating RNs: Sheri Chand RN, Ethel Daugherty RN
Carrot Harvester: Eboni Estrella CCP
Anesthesia: GETA
EBL: per perfusion records
Products: none
CPB Time: 86 minutes
Aortic Cross Clamp Time: 74 minutes
Indication(s) for Procedures: This is a 64-year-old male with history of previous stenting. He has a positive stress test in June 2025 and was ultimately recast. He was found to have multivessel coronary disease involving mostly the left
circulatory system. He has a nondominant right that also has some disease with very small distal vessels. Given his fatigue, lightheadedness and positive stress test he was referred to surgery for revascularization. Given his young age,
multivessel/multi arterial grafts were planned
Conduit(s) Quality:
CORDERO -small but overall excellent flow, good flow probe numbers with a mean flow of 10 and a pulse index of 3.5
Radial artery�excellent quality vessel, mean flow 40 cc a minute with a pulse index of 4.8
RSVG -the vein itself was of excellent quality but was much larger in the distal target. The mean flow here was approximately 8 with a pulse index of 10.
Target(s) Quality:
LPL -very small distal target, the mean flow on test dose of antegrade was approximately 20 to 30 cc at a pressure 80 mmHg. Given the size of the target I was not surprised with the marginal flow probe assessment
OM -both OM1 and OM 3 are very large targets. The radial graft was first performed to the OM 3 target and test dosing antegrade cardioplegia demonstrated excellent flow. Then a bulldog clamp was placed and the distal end and a sequential graft was
made to OM1 which also had excellent flow. Release of the bulldog clamp had a mean flow across the graft with test dose of antegrade of approximately 60 cc a minute at a pressure of 80 mmHg.
LAD -the LAD was heavily calcified already down towards the distal end, the distal LAD had a soft spot just after small diagonal vessel. The CORDERO was grafted here. There is excellent visual flow in the LAD territory both antegrade and retrograde
and visual pinking up of the myocardium.
Findings: His left ventricular ejection fraction preoperatively was 60%. There is no significant regional wall motion abnormalities. Following surgery he was extremely hyperdynamic with a EF of approximate 70 to 75%, at this stage he had some
dynamic systolic anterior motion of the mitral valve which resolved with volume loading and allowing his heart rate to drop back down to her [place] bradycardia. At the conclusion of the case there was no more significant mitral valve
insufficiency and no significant flow gradient across the LVOT once his EF normalized to 60%. No new regional wall motion abnormalities were identified. The CORDERO was harvested in a skeletonized fashion. Following bypass grafting, test dose
cardioplegia was given down each distal and confirmed patency and hemostasis. Flow probe assessment was used on each graft. The LPL graft was small and so the flow was relatively marginal on the vein graft. The radial had excellent flow as did
the CORDERO graft. His left atrial appendage was verified to be free of any thrombus or debris preoperatively and found to be totally occlusive postoperatively. He did not require any blood products, he did not require any inotropic support, and was
placed on low-dose Cardizem for his radiograph. He did not require any further pacing and was in his [place] bradycardic rhythm.
Description of Procedure: The patient was taken to the operating room. Their identity and procedure to be performed were verified and they were positioned supine on the operating table. Induction via general anesthesia with endotracheal intubation
was performed and central venous access and arterial monitoring were inserted. A preoperative transesophageal echocardiogram was performed to assess cardiac function and valvular function. The patient was then prepped and draped from chin to feet in
a sterile fashion. A preoperative time-out was performed with all members of the team present. A midline chest incision was performed along with median sternotomy. Simultaneous endoscopic access of the right lower extremity for saphenous vein
harvest was obtained along with administration of an initial 5,000 units of IV heparin. Additional access to the left radial artery was performed and the left radial artery was harvested Endo topically. A RulTract sternal retractor was positioned
to exposure the left internal mammary bed. The mammary was harvested and found to have good flow. A bulldog clamp was applied to the distal end of the mammary after dividing it. It was wrapped in a papaverine soaked RayTec and replaced back into the
left hemithorax. The RulTract was exchanged for a median sternal retractor. The innominate vein was isolated. Full heparinization was given (a total of 50,000 units). We created a pericardial well. The aortic cannulation site was chosen where it was
soft, pliable, and free of calcium. Cannulation was performed with an arterial cannula in the ascending aorta and a triple-stage venous cannula through the right atrial appendage. The arterial cannula line had an appropriate bounce and correlating
pressures with test dosing. Next, a root vent/antegrade cannula was inserted into the ascending aorta. The ACT was confirmed to be over 400 and retrograde autologous priming was performed before commencing cardiopulmonary bypass. The pulmonary
artery was away from the aorta to facilitate a clamp site. The aortic cross-clamp was placed after decreasing the flow on the bypass and mean arterial pressure. A total of 1.2L initial dose of antegrade Del-Nido cardioplegia solution was
given and planned for re-dosing every 75 minutes as necessary. There was rapid electro-mechanical arrest of the heart at 400 cc of cardioplegia. The left ventricle was observed for distention on echocardiogram and manual palpation. Cold slush was
placed into a sponge and topically on the RV while we systemically cooled to 34 degrees centigrade.
Once the heart was fully arrested is rotated medially and left atrial appendage was ligated with a 35mm device. I positioned the heart to expose the LPL. A [place] blade was used to expose the coronary and perform the arteriotomy. Coronary Rodgers
scissors were used to enlarge the incision. The saphenous vein was trimmed and beveled to an appropriate size. The distal anastomosis was performed using 7-0 prolene in an end-to-side fashion. Antegrade cardioplegia was administered into the graft.
Appropriate hemostasis and flow were confirmed. The graft was measured for length to the aorta and cut. A suitable site on the third obtuse marginal was chosen. We dissected and prepared the distal target in a similar fashion. An end-to-side
anastomosis was created with a 7-0 prolene using the radial graft. With the aid of an Angiocath, antegrade cardioplegia was given down the radial and the distal anastomosis was assessed for both flow and hemostasis. Both were acceptable. Next the
graft was lined up in order to accommodate a sequential graft to OM1. The distal target was prepared in similar fashion and a pkyd-ad-wekw anastomosis was made with 7-0 Prolene. The bulldog clamp was placed in the distal end of the radiograph and
again antegrade cardioplegia was given down the graft to test for both hemostasis and flow which were both excellent. The graft was measured for length to the aorta and cut. A suitable target on the distal left anterior descending was identified. We
dissected and prepared the distal target in a similar fashion. We retrieved the CORDERO from the chest and created a pericardial opening while being cognizant of the phrenic nerve to facilitate the course of the mammary. The distal end of the mammary
was prepped and beveled to size. We verified orientation and length of the KORY and found brisk flow. An ikjw-io-gxyw anastomosis was created with a 7-0 prolene. We temporarily released the bulldog clamp on the mammary to inspect flow. Perfusion to
the LAD territory was visualized and hemostasis was confirmed. The bull clamp was replaced on the mammary. The heart was filled and the root was distended with antegrade cardioplegia to make final assessment of graft length and orientation. We
created 2 aortotomies using a #11 blade then a 3.6mm aortic punch. The proximal anastomoses were created in an end-to-side fashion using 6-0 prolene for the vein graft and 7-0 Prolene for the. At the the same time, we re-warmed to 36.5 degrees
centigrade. The bulldog clamp was removed from the mammary. Temporary bipolar ventricular pacing wires were placed on the base of the right ventricle. The patient was placed in a Trendelenburg position and flows on bypass were lowered. The aortic
cross clamp was removed and flows were slowly brought back up. A 30-gauge needle was used to de-air the vein grafts. All bypass grafts were inspected and were free from kinking or twisting. The distal and proximal anastomoses appeared hemostatic.
Once transesophageal echocardiography appeared satisfactory for de-airing, the flows were temporarily lowered for root vent removal. After verifying acceptable parameters, we initiated weaning from cardiopulmonary bypass. Once we were off
cardiopulmonary bypass, the venous cannula was clamped and removed. A test dose of protamine was administered and the patient was monitored for any adverse reaction before resuming protamine. Once half of the protamine dose was delivered, pump
suckers were turned off and the systolic blood pressure was lowered for aortic decannulation. The aortic cannula was removed and pursestrings were tied down. All cannulation sites were oversewn with a 4-0 prolene. The mammary bed was inspected and
hemostasis was confirmed. Once the mediastinum was hemostatic, 19Fr Fran drain was placed in the left pleural cavity and two 24Fr Fran drains were placed within the pericardium. The sternum was approximated with 4 #7 single and 3 #8 double
stainless steel wires. Fascia was approximated with #1 vicryl suture. The subcutaneous, dermis and epidermis were closed in layers in a running fashion. The skin wound was cleansed and dressed.
All instrument, sponge, and needle counts were confirmed to be correct x 2 at the end of the operation. The patient was transferred to the cardiac intensive care unit in critical but stable condition.
I, Dr. Edward Martinez, was present, scrubbed for, and performed all critical elements of this procedure.
Edward Martinez MD, MS
Cardiothoracic Surgeon
[facility]
This operative dictation was created using the [email or web address] dictation system. Please excuse any grammatical, typographical, or 'sound alike' errors
[2025-07-26 11:56] LABS: Glucose - Point of Care 124 mg/dl (70-99)
--- NOTE | 2025-07-26 12:00 | PTCARENOTE ---
received patient from [facility]. sedated and placed on vent by OFFENSIVE COORDINATOR. Out with usual lines, V wires not pacing. CTx3. insulin precedex levo and cardizem for radial graft. labs drawn and sent. ekg and cxr done bedside. family updated. NSR HR 60s. #8 ett
SIMV 14/450/40%/+5. 100%. hypoactive bowel sounds. james draining clear yellow urine. pulses palpable. no edema. All surgical sites c/d/i. R IJ cordis without swan, R radial bartolo. PIVx1 will continue to monitor.
[2025-07-26 12:14] LABS: B.E. 0.4 mmol/L; HCO3 26.5 mmol/L (21-28); O2 Saturation % 99.4 % (94-98); PCO2 48 mmHg (35-48); PO2 147 mmHg (83-108); Potassium 4.3 mMOL/L (3.5-5.1); Sodium 138 mMOL/L (136-145)
--- NOTE | 2025-07-26 12:15 | CON.INTV ---
Consultation
Consultation Request
Date/Time Consultation Requested: 07/26/2025
Date/Time Consultation Performed: 07/26/2025
Medical History
-
Chief Complaint: Chest discomfort
History of Present Illness:
Patient is a 65-year-old gentleman with known history of coronary artery disease with history of PCI in 2005 who is developing some dizziness and exertional shortness of breath and was evaluated by cardiology service as outpatient. Patient had a
stress test performed in 06/2025 which was concerning for ischemia. Subsequently had an echocardiogram with preserved ejection fraction and a coronary angiogram which was suggestive of multivessel coronary artery disease. Patient was referred to
CT surgery service and was recommended to have surgical revascularization. 07/26, patient was taken to the OR for coronary artery bypass graft and postprocedure was admitted to cardiovascular ICU. [place] consultation was requested for further
input.
PMHx: CAD, hypertension, hyperlipidemia, DM type II, depression, VIKY on CPAP, glaucoma, fatty liver disease, ED, colonic polyps, heterozygous alpha 1 antitrypsin deficiency, history of Lyme disease
PSHx: PTCA stent in OM1, appendectomy, sinus surgery, tonsillectomy
Social History
Tobacco: Non-smoker
Alcohol: None
Drug: None
Personal:
Living: With Family
Family History
Family History: CAD (Sibling), Cancer (Father: Colon cancer) and Other (Father: Hyperlipidemia; Mother: Dementia)
Allergies / Home Medications
Allergies
Allergy/AdvReac Type Severity Reaction Status Date / Time
lisinopril Allergy Mild Unknown Verified 07/22/25 12:34
house dust Allergy Unknown Verified 07/22/25 12:34
methylprednisolone (From Allergy Rash Verified 07/22/25 12:34
Solu-Medrol)
mold Allergy Unknown Verified 07/22/25 12:34
pollen extracts Allergy Unknown Verified 07/22/25 12:34
prednisone Allergy Rash Verified 07/22/25 12:34
Home Medications
�Medication �Instructions �Recorded �Confirmed �Last Taken �Type
latanoprost 0.005 % eye drops 1 drp ophthalmic (eye) HS Eye 02/15/24 07/26/25 07/25/25 22:00 History
Condition
metformin 1,000 mg tablet 1,000 mg PO BID Diabetes 02/15/24 07/26/25 07/25/25 22:00 History
omega 8-hky-yjb-fish oil 1,000 mg 1 cap PO DAILY Supplement 02/15/24 07/26/25 07/18/25 History
(120 mg-180 mg) capsule (Fish Oil)
rosuvastatin 40 mg tablet 40 mg PO DAILY High Cholesterol 02/15/24 07/26/25 07/25/25 22:00 History
silodosin 8 mg capsule 8 mg PO DAILY BPH 02/15/24 07/26/25 07/23/25 08:00 History
timolol maleate (PF) 0.5 % eye 1 drp ophthalmic (eye) DAILY Eye 02/15/24 07/26/25 07/25/25 08:00 History
drops in a dropperette Condition
venlafaxine 75 mg capsule,extended 150 mg PO DAILY Mental 02/15/24 07/26/25 07/25/25 08:00 History
release 24 hr Health/Anxiety
ezetimibe 10 mg tablet 10 mg PO DAILY High Cholesterol 12/11/24 07/26/25 07/23/25 08:00 History
ipratropium bromide 42 mcg (0.06 1 spray intranasal R BID Allergies 12/11/24 07/26/25 07/25/25 22:00 History
%) nasal spray
olopatadine 665 mcg-mometasone 25 2 spray intranasal BID Allergies 12/11/24 07/26/25 07/25/25 22:00 History
mcg/spray nasal spray (Ryaltris)
aspirin 81 mg chewable tablet 81 mg PO DAILY Blood Clot 12/20/24 07/26/25 07/25/25 22:00 History
Prevention/Tx
alirocumab 75 mg/mL subcutaneous 75 mg SC Q14D 07/08/25 07/26/25 07/20/25 13:00 History
pen injector (Praluent Pen)
cyanocobalamin (vitamin B-12) 200 3 spray sublingual DAILY 07/22/25 07/26/25 07/18/25 History
mcg/spray sublingual
spray,suspension
polyethylene glycol 3350 17 4 g PO DAILY PRN constipation 07/22/25 07/26/25 07/10/25 History
gram/dose oral powder (Miralax)
tadalafil 10 mg tablet (Cialis) 10 mg PO DAILY PRN ED 07/22/25 07/26/25 07/09/25 History
vitamin D3 125 mcg (5,000 1 cap PO DAILY 07/22/25 07/26/25 07/18/25 History
unit)-vitamin K2 180 mcg capsule
Review of Systems
-
Hematologic/Lymphatic: Other (Appears comfortable. Patient just extubated, still somewhat drowsy but responsive.)
Vitals / Labs / Diagnostic Testing
Vital Signs
Temp Pulse Resp BP Pulse Ox
97.9 F 67 18 138/91 97
07/26/25 05:15 07/26/25 05:15 07/26/25 05:15 07/26/25 05:14 07/26/25 05:15
Microbiology
07/23/25 08:41 Nose MRSA Screen - Final
No Methicillin Resistant Staphylococcus aureus isolated.
07/23/25 08:41 Urine Urine Culture - Final
NO GROWTH
Diagnostic Testing:
Physical Exam
-
HEENT: Normocephalic
Cardiovascular: S1/S2
Respiratory: Clear and Non-Labored Respirations
GI: Soft and Non Distended
Neurology: Other (Bit drowsy but easily arousable)
Skin: Warm
General: Comfortable
Assessment
-
65-year-old male with history of multivessel coronary artery disease, s/p coronary artery bypass graft and left atrial appendage exclusion, POD # 0
Titrate off pressors per protocol, currently Levophed infusing at 7, patient also receiving Ringer lactate bolus. MAP of 76.
ECHO reviewed with normal function
Management of chest tubes per primary service, no airleak noted
Patient extubated to nasal cannula, saturating 100% on 4 L supplemental oxygen. Lying flat without any difficulty breathing. Work of breathing normal.
AB.35/48/147
CXR with mild atelectasis mostly left mid to lower lung.
Maintain supplement oxygen as needed
No prior history of pulmonary disease
Can add nebulizers if needed
Aspiration precautions
Encouraged incentive spirometry, OOB/ambulation/early mobility
Advance diet as tolerated following extubation
GI prophylaxis: Protonix
Monitor critical I/O's
Ruff/chest tube output
Hb/platelets postoperatively, mild drift
Trend CBC for now
Can transfuse if indicated for Hb <7, plt <50 in surgical patients
DVT prophylaxis including SCDs
Insulin protocol initiated and ongoing
Transition to SQ/off as indicated per team
Other medical diagnoses:
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
#Chronic anemia
#Chronic thrombocytopenia
#CAD with history of stent in the past
#VIKY on CPAP
#Erectile dysfunction
#History of colon polyps
#Hypertension
#Hyperlipidemia
#DM type II
#History of Lyme disease
Critical Care time [01] mins -- The patient is admitted for acute critical illness for the treatment of vital organ failure and/or prevention of further life-threatening conditions. Total care includes time spent in review of history, physical exam,
medications, hemodynamic/ventilator parameters, laboratory data, imaging and discussion with house staff, pharmacy, respiratory therapy, bar useful or busser, and nursing
Data:
[facility] 06/2025: 1. Multivessel coronary artery disease with heavily calcified tandem proximal-mid LAD, mid LAD, OM1, and large OM 3 as well as the distal circumflex / PDA if felt to be a suitable target.
2. Preserved LV systolic function
ECHO 06/2025: 1. Normal left ventricular size and function, ejection fraction 55%.
2. Mild mitral leaflet thickening with mitral annular calcification, trace mitral regurgitation, and normal left atrium.
3. Mild aortic leaflet thickening without regurgitation or stenosis.
4. Normal right heart, pulmonary artery systolic pressure is 27 mmHg.
5. The ascending aorta is 3.8 cm. Suspected atherosclerosis of the aortic arch.
6. There is no change compared to November 2022.
Lexiscan 06/2025: Positive ECG for ischemia: [address] depressions.
Small mild reversible anterolateral defect suggestive of ischemia in the left circumflex distribution.
Stress Risk is moderate risk study (1 - 3% CO or /year) due to pharmacologic agent used.
Systolic function is normal. The ejection fraction is 56%.
No previous study available for comparison.
CTA C/A/P 07/2025: 1. Aortic atherosclerotic changes. Aneurysmal dilation ascending aorta, 4.0 cm diameter. Post previous endovascular repair of abdominal aortic aneurysm. No endoleak identified. Unchanged size of excluded aneurysm sac.
2. Severe calcific atherosclerotic changes of the coronary arteries. Small amount of calcification along the mitral valve.
3. No acute pulmonary process. No acute intra-abdominal process.
4. Cholelithiasis.
5. Diverticulosis without diverticulitis.
6. Diffuse mild wall thickening of the urinary bladder, question outlet obstruction.
--- NOTE | 2025-07-26 12:16 | W.PN.UPDATE ---
Update Note
Progress Note Update
�
NEURO: sedated on precedex, pupils +1mm B/L
RESP: #8OT @22cm> 550/40%/14/5. Lungs clear B/L. 2 mediastinal (20cc on arrival) and L pleural (20cc on arrival) chest tubes to -20cm suction. Sanguineous drainage
CV: RRR +S1, S2, no S3, no�rub, no murmur. Dermabond to median sternotomy. RIJ
ABD: round, soft, no BS
EXT: no edema, +2/4 DP pulses B/L, no femoral bruit
: Ruff with clear yellow urine
�
A/P: POD #0 s/p Multi Arterial Coronary artery bypass grafting x 4 (In situ CORDERO to LAD, Ao to Radial to OM1 sequential to OM3, Ao to RSVG to LPL)
LISBETH: EF�60%
- wean and extubate
- Monitor CT and urine output
- Follow up labs and CXR
- Wean levophed for maps >65/SBP goal 110-130
- Will start ASA tonight
- EKG pending and will send to cards
- Cards consulted
- Goal to extubate and start low-dose Norvasc tonight to wean off Cardizem drip
�
# acute surgical blood loss anemia-expected
- trend CBC
�
#BPH
-Resume Flomax when tolerating p.o.
#DM2
-A1c 5.9
Resume metformin in 48 hours continue insulin drip for now
�
# Hyperlipidemia
- resume�statin
-ok to resume pralulent after discharge
[2025-07-26 12:19] LABS: Hematocrit 34.1 % (39.0-52.0); Hemoglobin 11.1 g/dL (13.0-18.0); Platelet Count 121 10^3/uL (130-400)
[2025-07-26 12:23] LABS: INR 1.33; PT 16.8 Sec (11.4-14.6)
[2025-07-26 12:24] LABS: APTT 31.9 Sec (23.4-35.0)
[2025-07-26] MEDS: CRESTOR PO (12:25)
[2025-07-26] MEDS: LR 250 ML IV ×5 (12:25→15:21)
[2025-07-26] MEDS: NSS 500 IV (12:25)
[2025-07-26] MEDS: TYLENOL PO ×2 (12:25→21:54)
[2025-07-26] MEDS: NEURONTIN PO (12:26)
[2025-07-26] MEDS: CARDIZEM 125 IV (12:26)
[2025-07-26 12:38] LABS: Blood Urea Nitrogen 11 mg/dl (9-20); Estimated Creatinine Clearance 117 ml/min; Glucose 121 mg/dl (70-99); Magnesium 2.5 mg/dl (1.6-2.3)
--- NOTE | 2025-07-26 13:14 | PN.DE.MGMTRT ---
Insulin Management
- -
07/26/2025: Diabetes Management Consult
65 year old male with h/o previous stenting. He had a positive stress test in June 2025 and was ultimately recast. He was found to have multivessel coronary disease involving mostly the left circulatory system. He has a nondominant right
that also has some disease with very small distal vessels. Given his fatigue, lightheadedness and positive stress test he was referred to surgery for revascularization.
PMH: HTN, HLD, AAA s/p endovascular repair with aortoiliac endograft 12/2024, H/o vasovagal syncope, Chronic sinus bradycardia, VIKY, Carotid artery disease
Alpha 1 anti-trypsin PIMS phenotype and pre-Diabetes.
Was taking Metformin 1000mg BID prior to admission. A1C on admission 5.9%, Cr today 1.1, eGFR > 60.
Patient is intubated and sedated, unable to interview. No family at bedside.
POD #0 s/p Multi Arterial Coronary artery bypass grafting x 4
Currently receiving critical care glycemic protocol insulin infusion at 3 units of insulin /hr.
Will continue insulin infusion today and tomorrow and reassess in AM of 07/28 for readiness to transition to his home regimen- Metformin 1000 mg BID
Discussed with nurse. Will cont to follow
Diabetes History
- -
Pre-Admission Diabetes Regimen
07/26/25
11:56
Creatinine 0.7
Lab Results
Hemoglobin A1c 5.9 % (4.0-5.6) H 07/23/25 08:41
Insulin Pump Settings
IP Diabetes Regimen
07/26/25 07/26/25
11:55 11:56
Glucose 121 H
POC Glucose 124 H
Patient Education
[2025-07-26 13:15] LABS: Glucose - Point of Care 138 mg/dl (70-99)
[2025-07-26] MEDS: DILAUDID 0.5 MG IV ×2 (13:28→18:30)
[2025-07-26 14:15] LABS: Glucose - Point of Care 134 mg/dl (70-99)
--- NOTE | 2025-07-26 14:17 | W.PN.CARDCBS ---
Addendum entered and electronically signed by Fitz Bean MD 07/26/25 16:18:
I saw and examined the patient.
The Accounting System Expert's note was reviewed and I agree with the note.
Comment:
GEN: No distress, awake, Ox3
HEENT: supple, anicteric, mmm
LUNGS: CTA, no wheezes/rales
CV: Reg, S1/S2, + rub
ABD: soft, BS+, NT/ND
EXT: No edema
NEURO: Gross non-focal
SKIN: sternotomy
PLan:
Doing well status post CABG/atrial clip
Weaning pressors to off.
Start amiodarone.
Postop ECG stable. Continue aspirin and Plavix
Original Note:
Today's Communication / Plan
-
Continue postoperative care
Impression / Plan
-
Primary security checker: Dr. Urvashi Sanchez
Assessment:
CAD
s/p OM PCI 2005 with residual disease
s/p In situ CORDERO to LAD, Ao to Radial to OM1 sequential to OM3, Ao to RSVG to LPL, BUBBA clip 07/26/25
HTN
HLD with elevated LP(a)
DM2
AAA s/p endovascular repair with aortoiliac endograft 12/2024
History of vasovagal syncope
Chronic sinus bradycardia
VIKY
Carotid artery disease
Alpha 1 anti-trypsin PIMS phenotype
ECHO 07/01/25: EF 55%, MAC, trace MR, normal right heart, PAP 27 mmHg, ascending aorta 3.8 cm, suspected atherosclerosis of aortic arch
Plan:
-s/p In situ CORDERO to LAD, Ao to Radial to OM1 sequential to OM3, Ao to RSVG to LPL, BUBBA clip 07/26/25
-intubated, sedated
-on levo@6, wean as able
-hgb 10.6, plts 120K, follow post op
-post op EKG sinus bradycardia. He has known history of chronic sinus bradycardia
-He has known hyperlipidemia with elevated LP(a). As outpatient is on regimen of Praluent, Crestor, Zetia
-continue post op care
-d/w nursing
Progress Note - Haulpak Driver
Subjective
Date of Service: July 26, 2025
Intubated, sedated
Objective
Labs:
07/26/25 11:56
Labs
Hgb 11.1 g/dL (13.0-18.0) L 07/26/25 11:56
Hct 34.1 % (39.0-52.0) L 07/26/25 11:56
Plt Count 121 10^3/uL (130-400) L D 07/26/25 11:56
PT 16.8 Sec (11.4-14.6) H 07/26/25 11:56
INR 1.33 07/26/25 11:56
APTT 31.9 Sec (23.4-35.0) 07/26/25 11:56
Sodium 140 mmol/L (135-145) 07/23/25 08:41
Potassium 4.1 mmol/L (3.5-5.1) 07/23/25 08:41
BUN 11 mg/dl (9-20) 07/26/25 11:56
Creatinine 0.7 mg/dL (0.7-1.3) 07/26/25 11:56
Glucose 121 mg/dl (70-99) H 07/26/25 11:56
Vital Signs and I&O:
Vital Signs
Temp Pulse Resp BP Pulse Ox
97.8 F 64 14 129/84 100
07/26/25 12:59 07/26/25 12:59 07/26/25 12:59 07/26/25 05:15 07/26/25 12:59
Vital Signs
Temp Pulse Resp BP Pulse Ox
97.8 F 64 14 129/84 100
07/26/25 12:59 07/26/25 12:59 07/26/25 12:59 07/26/25 05:15 07/26/25 12:59
Intake & Output
07/24/25 07/25/25 07/26/25 07/27/25
07:59 07:59 07:59 07:59
Intake Total 844.3 / 844.3
Output Total 955 / 955
Balance -110.7 / -110.7
Physical Exam
Physical Exam
GEN: No distress, intubated, sedated
HEENT: supple, mmm
LUNGS: CTA bilaterally, no wheezes/rales
CV: Reg, S1/S2, no murmur
ABD: soft, ND
EXT: No cyanosis, clubbing, edema
NEURO: Gross non-focal
SKIN: Warm, pink, dry. No rash. Sternotomy incision clean dry and intact. Left upper extremity with Dexter wrap to forearm
[2025-07-26 14:22] LABS: B.E. -5.5 mmol/L; HCO3 20.1 mmol/L (21-28); O2 Saturation % 100.0 % (94-98); PCO2 39 mmHg (35-48); PO2 191 mmHg (83-108); Potassium 3.2 mMOL/L (3.5-5.1)
[2025-07-26 14:23] LABS: Hematocrit 31.6 % (39.0-52.0); Hemoglobin 10.6 g/dL (13.0-18.0); Platelet Count 120 10^3/uL (130-400)
[2025-07-26] MEDS: CALCIUM GLUCONATE 100 IV (14:28)
[2025-07-26] MEDS: SODIUM BICARBONATE 50 MEQ IV (14:29)
[2025-07-26] MEDS: KCL 50 IV ×2 (14:35→15:07)
[2025-07-26 15:00] VITALS: BP_SYST 112
--- NOTE | 2025-07-26 15:00 | PTCARENOTE ---
1435 extubated to 6L nc. IS done to 1000.
[2025-07-26 15:22] LABS: Glucose - Point of Care 102 mg/dl (70-99)
[2025-07-26 15:24] LABS: B.E. - POC 5.6 mmol/L; Blood Urea Nitrogen - POC 9 mg/dl (3-120); Chloride - POC 107 mmol/L (96-111); Creatinine - POC 0.73 mg/dl (0.3-1.0); Glucose - POC 127 mg/dl (70-99); HCO3 - POC 32 mmol/L (21-28); Hematocrit - POC 31 % PCV (42-52); Hemodilution- POC Yes; Hemoglobin Calculated - POC 10.4; Ionized Calcium - POC 1.23 mmol/L (1.15-1.33); Lactate - POC 1.79 mmol/L (0.36-0.75); O2 Saturation %Calculated-POC 97.4 % (94-98); PCO2 - POC 53 mmHg (35-48); PO2 - POC 98 mmHg (83-108); Potassium - POC 4.3 mmol/L (3.5-5.1); Sodium - POC 146 mmol/L (136-145); Specimen Type - POC Arterial; pH - POC 7.39 (7.35-7.45)
[2025-07-26 16:03] LABS: Glucose - Point of Care 112 mg/dl (70-99)
[2025-07-26] MEDS: PACERONE 200 MG PO ×2 (16:08→22:52)
[2025-07-26] MEDS: NEURONTIN 100 MG PO ×2 (16:08→22:52)
[2025-07-26] MEDS: LOW STRENGTH ASPIRIN 81 MG PO (16:15)
--- NOTE | 2025-07-26 16:38 | PTCARENOTE ---
labile pressures. 1.5 L LR given in total. albuminx1. levo @ 5mcg. Dilt off due to hypotension. KATELYN Leon at bedside, will continue ot monitor.
[2025-07-26] MEDS: ANCEF 5 IV (17:54)
[2025-07-26 18:18] LABS: Glucose - Point of Care 124 mg/dl (70-99)
[2025-07-26] MEDS: ALBUMIN 5% 250 IV (18:24)
[2025-07-26] MEDS: LR 1000 IV (19:55)
[2025-07-26] MEDS: SENOKOT 8.6 MG PO (19:55)
[2025-07-26 19:59] LABS: Glucose - Point of Care 100 mg/dl (70-99)
--- NOTE | 2025-07-26 20:13 | PTCARENOTE ---
received pt from previous rn. Pt AAOx4, NSR per tele monitor HR 60s. + pulses, v wire set to VVI 40/10. pox 100% on 2L NC. lungs clear diminished at bases. CTx3 set -20cm wall suction no tidaling/air leak/crepitus. +bs. james draining clear yellow
urine. all surgical incisions intact. CT dressing c/d/i. PIV infusing insulin per glycemic protocol. RIJ cordis w/ SLIC intact. R radial a-line intact. All lines leveled, zeroed, and flushed.plan of care discussed and questions encouraged. see
worklist for full nursing assessment and nursing interventions.
gtts:
Levo 6 mcg/min
Insulin
[2025-07-26] MEDS: LEVOPHED 250 IV (20:49)
[2025-07-26 21:23] VITALS: BP 74/53
[2025-07-26] MEDS: OFIRMEV 100 IV (21:33)
[2025-07-26 21:58] LABS: Glucose - Point of Care 110 mg/dl (70-99)
[2025-07-26 22:00] VITALS: BP 107/70
[2025-07-26] MEDS: XALATAN OPHTHALMIC SOLUTION 1 DROP OPHTH (22:53)
[2025-07-27] VITALS (21 sets, daily range): BP systolic 79–111; BP diastolic 49–67; PULSE 62; O2SAT 98; BMI 24.5
[2025-07-27 00:09] LABS: Glucose - Point of Care 88 mg/dl (70-99)
[2025-07-27] MEDS: DILAUDID 0.5 MG IV ×2 (00:14→03:24)
--- NOTE | 2025-07-27 00:30 | PTCARENOTE ---
pt reassessed. No acute changes at this time. pt c/o incision pain. See MAR. NSR per tele monitor HR 60s. VSS.
[2025-07-27] MEDS: ANCEF 5 IV ×2 (01:55→10:26)
[2025-07-27 02:00] LABS: Glucose - Point of Care 104 mg/dl (70-99)
--- NOTE | 2025-07-27 02:08 | W.PN.CT ---
Addendum entered and electronically signed by Victoriano Lai MD 07/27/25 08:26:
I saw and examined the patient.
The PA's note was reviewed and I agree with the note.
Comment:
POD#1 s/p CABG x 4 (EMERALD to LAD, Rosalind to OM1 and OM2, GSV to LPL), ELAA
No major overnight issues. Levophed at 5 this AM - will wean for MAPs > 65
Hold norvasc this AM - if OFF levophed, will institute norvasc this afternoon
CTs OK
CXR: clear, minor pulmonary edema
OOB/IS/ambulate later
Original Note:
Today's Communication / Plan
-
Transient�brief drops in BP
Current Drips:�Levophed�@�6,�insulin drip�
Current meds (Amiodarone,�Norvasc,�ASA,�Plavix,�gabapentin,�lopressor,�protonix,�flomax)�
CT 2 MS�=325/200 =525 L�PL =�130/10 =170�
Maintain Cordis and v wires
Received 1.5 of IV fluids Bolus +�100ml/hr�(1000ml)�of LR overnight�
UO =�1470/450 =1920�
Encourage IS, OOB�
Assessment / Plan
-
S/P In situ CORDERO to LAD, Ao to Radial to OM1 sequential to OM3, Ao to RSVG to LPL) on 07/26/[address] Roldan #1
Past medical history:
Abdominal aortic aneurysm
Hypertension
Hyperlipidemia
DM2
Syncope
Obstructive sleep apnea
Erectile dysfunctional
Bradycardia
Carotid artery disease
Depression
Glaucoma
Fatty liver
Lyme�disease
Colon polys
Subjective
Procedure
S/P In situ CORDERO to LAD, Ao to Radial to OM1 sequential to OM3, Ao to RSVG to LPL) on 07/26/[address] Martinez�
-
Date of Service: July 27, 2025
Objective Data
-
PT 16.8 Sec (11.4-14.6) H 07/26/25 11:56
INR 1.33 07/26/25 11:56
APTT 31.9 Sec (23.4-35.0) 07/26/25 11:56
Vital Signs
Vital Signs
Temp Pulse Resp BP Pulse Ox
99.2 F 58 20 107/70 100
07/27/25 02:00 07/27/25 02:00 07/27/25 02:00 07/26/25 22:00 07/27/25 02:00
CT Intake/Output/Weight
07/26/25 07/26/25 07/27/25
06:59 18:59 06:59
Intake Total 2120.0 / 3173.2 1053.2 / 3173.2
Output Total 1925 / 2510 585 / 2510
Balance 195.0 / 663.2 468.2 / 663.2
SaO2: 100
Physical Exam
-
General: Awake
Cardiovascular: Regular rate & rhythm
Respiratory: Clear and Equal
Sternum: Stable
Incision: Clean, Dry and Intact
Extremities: Edema +1
[2025-07-27 04:04] LABS: Glucose - Point of Care 112 mg/dl (70-99)
--- NOTE | 2025-07-27 04:35 | PTCARENOTE ---
pt reassessed. BP labile. AM labs and EKG obtained. SB/NSR per tele monitor.
[2025-07-27 04:36] LABS: Hematocrit 28.6 % (39.0-52.0); Hemoglobin 9.4 g/dL (13.0-18.0); Mean Corp Hgb Conc. 32.9 g/dL (33.0-37.0); Mean Corpuscular Volume 91.7 fL (80.0-94.0); Platelet Count 120 10^3/uL (130-400); Red Cell Dist. Width 13.0 % (11.5-14.5)
[2025-07-27] MEDS: ROXICODONE 5 MG PO ×3 (04:45→13:33)
[2025-07-27 04:57] LABS: Blood Urea Nitrogen 12 mg/dl (9-20); Calcium 8.0 mg/dl (8.4-10.2); Carbon Dioxide 29 mmol/L (22-30); Chloride 107 mmol/L (98-107); Estimated Creatinine Clearance 117 ml/min; Glucose 121 mg/dl (70-99); Magnesium 1.7 mg/dl (1.6-2.3); Potassium 4.1 mmol/L (3.5-5.1); Sodium 139 mmol/L (135-145); eGFR > 60.00
[2025-07-27] MEDS: TYLENOL 975 MG PO ×3 (05:06→22:18)
[2025-07-27 06:07] LABS: Glucose - Point of Care 94 mg/dl (70-99)
--- NOTE | 2025-07-27 06:37 | PTCARENOTE ---
pt draining blood tinged urine from james catheter. MEDICAL REGISTRAR made aware.
--- NOTE | 2025-07-27 07:16 | W.PN.ANS.POP ---
Anesthesia Post Operative
- Anesthesia Post Op Note
Vital Signs Stable-See Nursing Note: Yes (remains on levophed gtt)
Airway Patent: Yes
Adequate Pain Control: Yes
Change in Mental Status: No
Current Postoperative Nausea & Vomiting: No
Anesthesia Complications: No
General Anesthetic Recall: No
Unplanned Admission: No
Post Op Hydration Adequate: Yes
--- NOTE | 2025-07-27 07:33 | W.PN.INTV ---
Addendum entered and electronically signed by Jeff Reyes MD 07/28/25 10:30:
07/28
Patient transferred to telemetry floor
[employer] service will sign off, please call as needed.
Original Note:
Today's Communication / Plan
Recommendations
- Continue to wean Levophed as tolerated
- Incentive spirometry, increase activity as tolerated
Assessment
-
Patient is a 65-year-old gentleman with known history of coronary artery disease with history of PCI in 2005 who is developing some dizziness and exertional shortness of breath and was evaluated by cardiology service as outpatient. Patient had a
stress test performed in 06/2025 which was concerning for ischemia. Subsequently had an echocardiogram with preserved ejection fraction and a coronary angiogram which was suggestive of multivessel coronary artery disease. Patient was referred to
CT surgery service and was recommended to have surgical revascularization. 07/26, patient was taken to the OR for coronary artery bypass graft and postprocedure was admitted to cardiovascular ICU. [facility] [facility] consultation was requested for further
input.
In brief, 65-year-old male with history of multivessel coronary artery disease, s/p coronary artery bypass graft and left atrial appendage exclusion, POD # 1
Overview 07/27: Currently requiring Levophed at 4, MAP of 65. Saturating 94% on room air. Insulin infusion continuing.
Titrate off pressors per protocol, currently Levophed infusing at 4. MAP of 65.
ECHO reviewed with normal function
Management of chest tubes per primary service, no airleak noted
Patient extubated to nasal cannula, saturating 94% on room air. Lying flat without any difficulty breathing. Work of breathing normal.
AB.35/48/147
CXR with mild atelectasis mostly left mid to lower lung.
Supplement oxygen as needed
No prior history of pulmonary disease
Can add nebulizers if needed
Aspiration precautions
Encouraged incentive spirometry, OOB/ambulation/early mobility
Advance diet as tolerated following extubation
GI prophylaxis: Protonix
Monitor critical I/O's
Ruff/chest tube output
Hb/platelets postoperatively, mild drift
Trend CBC for now
Can transfuse if indicated for Hb <7, plt <50 in surgical patients
DVT prophylaxis including SCDs
Insulin protocol initiated and ongoing
Transition to SQ/off as indicated per team
Other medical diagnoses:
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
#Chronic anemia
#Chronic thrombocytopenia
#CAD with history of stent in the past
#VIKY on CPAP
#Erectile dysfunction
#History of colon polyps
#Hypertension
#Hyperlipidemia
#DM type II
#History of Lyme disease
Critical Care time [35] mins -- The patient is admitted for acute critical illness for the treatment of vital organ failure and/or prevention of further life-threatening conditions. Total care includes time spent in review of history, physical exam,
medications, hemodynamic/ventilator parameters, laboratory data, imaging and discussion with house staff, pharmacy, respiratory therapy, bed laster, and nursing
Data:
[facility] 06/2025: 1. Multivessel coronary artery disease with heavily calcified tandem proximal-mid LAD, mid LAD, OM1, and large OM 3 as well as the distal circumflex / PDA if felt to be a suitable target.
2. Preserved LV systolic function
ECHO 06/2025: 1. Normal left ventricular size and function, ejection fraction 55%.
2. Mild mitral leaflet thickening with mitral annular calcification, trace mitral regurgitation, and normal left atrium.
3. Mild aortic leaflet thickening without regurgitation or stenosis.
4. Normal right heart, pulmonary artery systolic pressure is 27 mmHg.
5. The ascending aorta is 3.8 cm. Suspected atherosclerosis of the aortic arch.
6. There is no change compared to November 2022.
Lexiscan 06/2025: Positive ECG for ischemia: [address] depressions.
Small mild reversible anterolateral defect suggestive of ischemia in the left circumflex distribution.
Stress Risk is moderate risk study (1 - 3% NV or /year) due to pharmacologic agent used.
Systolic function is normal. The ejection fraction is 56%.
No previous study available for comparison.
CTA C/A/P 07/2025: 1. Aortic atherosclerotic changes. Aneurysmal dilation ascending aorta, 4.0 cm diameter. Post previous endovascular repair of abdominal aortic aneurysm. No endoleak identified. Unchanged size of excluded aneurysm sac.
2. Severe calcific atherosclerotic changes of the coronary arteries. Small amount of calcification along the mitral valve.
3. No acute pulmonary process. No acute intra-abdominal process.
4. Cholelithiasis.
5. Diverticulosis without diverticulitis.
6. Diffuse mild wall thickening of the urinary bladder, question outlet obstruction.
Subjective Dataa
Subjective Data
Date of Service:
Date of Service: July 27, 2025
Subjective:
Patient comfortable lying in bed in no acute distress.
Review of Systems
Genitourinary: Other (All 14 systems reviewed and negative except as stated above in the history of present illness.)
Objective Data
Data Reviewed
Vital Signs / I&O / Oxygen:
Vital Signs
Temp Pulse Resp BP Pulse Ox
99.6 F 60 26 94/67 98
07/27/25 07:00 07/27/25 07:00 07/27/25 07:00 07/27/25 06:09 07/27/25 07:00
Intake and Output
07/26/25 07/27/25 07/28/25
06:59 06:59 06:59
Intake Total 3746.7 / 3791.5 44.8 / 44.8
Output Total 2770 / 2810 40 / 40
Balance 976.7 / 981.5 4.8 / 4.8
SaO2 [P-SIMV] 100
SaO2 98
Nasal Cannula flow liters per 1
minute
Physical Exam
General: Comfortable
HEENT: Normocephalic
Cardiovascular: S1-S2
Respiratory: Clear and Non-Labored Respirations
GI: Soft and Non Distended
Neurology: Awake and Alert
Skin: Warm
Labs/Micro/Reports
Lab Data
07/27/25 04:13
07/27/25 04:13
Laboratory Results
07/26/25 07/26/25 07/26/25
11:56 14:11 18:48
PT 16.8 H
INR 1.33
APTT 31.9
pH 7.35 7.32 L Cancelled
pCO2 48 39 Cancelled
pO2 147 H 191 H Cancelled
HCO3 26.5 20.1 L Cancelled
O2 Delivery Level Cancelled
Microbiology
07/23/25 08:41 Nose MRSA Screen - Final
No Methicillin Resistant Staphylococcus aureus isolated.
07/23/25 08:41 Urine Urine Culture - Final
NO GROWTH
[2025-07-27] MEDS: LEVOPHED 250 IV ×2 (07:43→22:28)
[2025-07-27 08:35] LABS: Glucose - Point of Care 107 mg/dl (70-99)
[2025-07-27] MEDS: FLEXERIL 5 MG PO (08:37)
[2025-07-27] MEDS: MAGNESIUM SULFATE 102 GRAMS IV (08:38)
[2025-07-27] MEDS: PLAVIX 75 MG PO (08:38)
[2025-07-27] MEDS: LIDOCAINE 4% PATCH 1 PATCH TOPICAL (08:38)
[2025-07-27] MEDS: PROTONIX 40 MG PO (08:38)
[2025-07-27] MEDS: ZETIA 10 MG PO (08:38)
[2025-07-27] MEDS: SENOKOT 8.6 MG PO (08:39)
[2025-07-27] MEDS: CRESTOR 40 MG PO (08:39)
[2025-07-27] MEDS: FLOMAX 0.4 MG PO (08:39)
[2025-07-27] MEDS: PACERONE 200 MG PO ×3 (08:39→22:17)
[2025-07-27] MEDS: MAGNESIUM OXIDE 400 MG PO ×2 (08:39→20:30)
[2025-07-27] MEDS: NEURONTIN 100 MG PO ×3 (08:39→22:17)
[2025-07-27] MEDS: LOW STRENGTH ASPIRIN 81 MG PO (08:39)
[2025-07-27] MEDS: TIMOPTIC 0.5% OPHTHALMIC SOLUTION 1 DROP OPHTH (08:41)
[2025-07-27] MEDS: BACTROBAN 2% OINTMENT 1 APPLIC NASAL ×2 (08:42→20:30)
--- NOTE | 2025-07-27 08:45 | PTCARENOTE ---
Assumed care of patient at 0700. Pt is awake, alert, and oriented. Pt with complaints of pain, PRN pain medications administered per order. Pt remains SR/SB with HR 50's-60's. BP 104/50 MAP 61. Remains on Levo at 4mcg/min. CVP 8. Epicardial V wire
in place set to VVI 40/10/8. Pulse oximetry 95% on room air. Mediastinal chest tubes x2 and left/right pleural chest tubes in place no sign of air leak or crepitus. Pt tolerating PO. Ruff in place draining yellow urine, Ruff care completed.
Midsternal incision approximated with surgical adhesive and BRITTNI. Right leg incision with jocelyn wrap in place. Left radial site BRITTNI. Pulses palpable. Right IJ cordis in place with SLIC in place. Pt remains on insulin gtt per glycemic protocol. Pt
remains in bed at this time.
--- NOTE | 2025-07-27 09:05 | W.PN.CARDCBS ---
Today's Communication / Plan
-
Overall doing well. Wean Levophed.
Continue amiodarone. Hold metoprolol with sinus bradycardia
Continue aspirin and Plavix
Hemoglobin at 9.4. Creatinine normal
Impression / Plan
-
Primary cushion worker: Dr. Urvashi Sanchez
Assessment:
CAD
s/p OM PCI 2005 with residual disease
s/p In situ CORDERO to LAD, Ao to Radial to OM1 sequential to OM3, Ao to RSVG to LPL, BUBBA clip 07/26/25
HTN
HLD with elevated LP(a)
DM2
AAA s/p endovascular repair with aortoiliac endograft 12/2024
History of vasovagal syncope
Chronic sinus bradycardia
VIKY
Carotid artery disease
Alpha 1 anti-trypsin PIMS phenotype
ECHO 07/01/25: EF 55%, MAC, trace MR, normal right heart, PAP 27 mmHg, ascending aorta 3.8 cm, suspected atherosclerosis of aortic arch
Plan:
-s/p In situ CORDERO to LAD, Ao to Radial to OM1 sequential to OM3, Ao to RSVG to LPL, BUBBA clip 07/26/25
-Remains on low-dose Levophed. Continue to wean.
-Eventually start calcium channel denisa for radial graft.
-Has some sinus bradycardia. Hold metoprolol. Okay to continue amiodarone and follow-up with them.
-He has known hyperlipidemia with elevated LP(a). As outpatient is on regimen of Praluent, Crestor, Zetia
- Continue aspirin, Plavix, and Crestor
Progress Note - Housing Manager
Subjective
Date of Service: July 27, 2025
Overall looks good. Still having some chest discomfort. Remains on Levophed for now.
Objective
Labs:
07/27/25 04:13
07/27/25 04:13
Labs
Hgb 9.4 g/dL (13.0-18.0) L 07/27/25 04:13
Hct 28.6 % (39.0-52.0) L 07/27/25 04:13
Plt Count 120 10^3/uL (130-400) L 07/27/25 04:13
PT 16.8 Sec (11.4-14.6) H 07/26/25 11:56
INR 1.33 07/26/25 11:56
APTT 31.9 Sec (23.4-35.0) 07/26/25 11:56
Sodium 139 mmol/L (135-145) 07/27/25 04:13
Potassium 4.1 mmol/L (3.5-5.1) 07/27/25 04:13
BUN 12 mg/dl (9-20) 07/27/25 04:13
Creatinine 0.7 mg/dL (0.7-1.3) 07/27/25 04:13
Glucose 121 mg/dl (70-99) H 07/27/25 04:13
Vital Signs and I&O:
Vital Signs
Temp Pulse Resp BP Pulse Ox
99.8 F 62 24 94/67 94
07/27/25 08:00 07/27/25 08:00 07/27/25 08:00 07/27/25 06:09 07/27/25 08:00
Vital Signs
Temp Pulse Resp BP Pulse Ox
99.8 F 62 24 94/67 94
07/27/25 08:00 07/27/25 08:00 07/27/25 08:00 07/27/25 06:09 07/27/25 08:00
Intake & Output
07/25/25 07/26/25 07/27/25 07/28/25
06:59 06:59 06:59 06:59
Intake Total 3746.7 / 3791.5 81.8 / 81.8
Output Total 2770 / 2810 115 / 115
Balance 976.7 / 981.5 -33.2 / -33.2
Physical Exam
Physical Exam
GEN: No distress, awake, Ox3
HEENT: supple, anicteric, mmm, R IJ
LUNGS: CTA, no wheezes/rales
CV: Reg, S1/S2, no rub
ABD: soft, BS+, NT/ND
EXT: No edema
NEURO: Gross non-focal
SKIN: sternotomy
[2025-07-27] MEDS: CALCIUM CHLORIDE 10% SYRINGE 60 MG IV (10:07)
[2025-07-27 10:16] LABS: Glucose - Point of Care 109 mg/dl (70-99)
[2025-07-27] MEDS: EFFEXOR XR 150 MG PO (10:26)
[2025-07-27] MEDS: NSS 500 IV (10:26)
[2025-07-27 12:00] LABS: Glucose - Point of Care 99 mg/dl (70-99)
[2025-07-27] MEDS: ALBUMIN 5% 250 IV (12:37)
--- NOTE | 2025-07-27 12:45 | PTCARENOTE ---
Pt received 250mL NSS and 1gm calcium per order. Assisted pt to side of bed to attempt to get OOB to chair. Pt became hypotensive with SBP 60's, pt reports feelings of dizziness. Assisted pt back to laying down in bed. Pt remains on Levo gtt. CT KATELYN,
[place] aware. 5% Albumin administered per order. Pt with no dumping in chest tubes. Insulin gtt d/c'd per order.
[2025-07-27] MEDS: FERRLECIT 110 MG IV (14:46)
[2025-07-27] MEDS: DILAUDID 0.25 MG IV ×2 (15:08→20:31)
[2025-07-27] MEDS: LR 1000 IV (16:29)
--- NOTE | 2025-07-27 16:30 | PTCARENOTE ---
BP 66/37 MAP 44, HR 57 while pt was eating. Lowered head of bed and titrated Levo. CT PA, [place], aware. BP recovered 105/47 MAP 60, HR 63. Midodrine administered per order and LR @100ml/hr started per order.
[2025-07-27] MEDS: SENOKOT PO ×2 (20:30→20:35)
[2025-07-27] MEDS: REMOVE LIDOCAINE PATCH 1 PATCH REMOVE (20:30)
--- NOTE | 2025-07-27 20:30 | PTCARENOTE ---
Patient received resting in bed watching television. Patient A+A+Ox3. No neurological deficits noted. No c/o headache, dizziness or lightheadedness. O2 at 2L via NC. SpO2 95%. Three chest tubes - Mediastinal x2 and Left Pleural - Intact and
patent -20 ml red drainage - No air leak. Chest tube dressing intact. Sinus Rhythm. Heart rate 60's. Levophed gtt at 3 mcq/min. Blood pressure 108/50 (65). VVI 40/10/8.0 Patient with no c/o chest pain, pressure or discomfort. Abdomen soft,
nontender. Normoactive bowel sounds. No BM. No c/o nausea. No vomiting. Ruff catheter - Temperature sensing - Light coleen, yellow urine. Positive, palpable pulses. Left radial graft site - Incision intact - Open to air - Edema - Positive
Ulnar Pulse. Right I.J. Cordis with [place] catheter. CVP 5. LR at 100 ml/hr. Right radial arterial line intact and patent - Flushes without difficulty - Waveform within normal limits. Sternal incision intact. Right groin site intact. Right
lower extremity incision intact. Patient with no c/o back or flank pain. Assessment as documented.
[2025-07-27] MEDS: XALATAN OPHTHALMIC SOLUTION 1 DROP OPHTH (22:17)
[2025-07-27 22:24] LABS: Glucose - Point of Care 128 mg/dl (70-99)
[2025-07-28] VITALS (30 sets, daily range): BP systolic 88–128; BP diastolic 50–72; BMI 25.3
--- NOTE | 2025-07-28 01:00 | PTCARENOTE ---
Patient given CHG bath and linens changed. Chest tube dressing changed. IV Dilaudid 0.25 mg for pain management. Patient now sleeping without difficulty. Assessment as documented.
[2025-07-28] MEDS: LR 1000 IV (01:02)
[2025-07-28] MEDS: DILAUDID 0.25 MG IV (01:03)
--- NOTE | 2025-07-28 04:54 | W.PN.CT ---
Addendum entered and electronically signed by Victoriano Lai MD 07/28/25 09:02:
I saw and examined the patient.
The PA's note was reviewed and I agree with the note.
Comment:
Doing well. Levophed OFF.
Continue midodrine
D/C pleural CTs
OOB/IS/ambulate
Original Note:
Today's Communication / Plan
-
- POD #2
- No significant overnight events
- Still with labile BP, levoped requirement ongoing. Norvasc held. Midodrine added to help reduce fluctuations, s/p slow IVF bolus. Family reports he has ongoing vagal episodes at home prior to surgery. CVP 3-5.
- CT: 2M 90/[address] 35/70 cc out in 12/24 hours
- Keep cordis and V wire
- UOP 480/765 out in 12/24 hours
- IS, OOB
Assessment / Plan
-
S/P In situ CORDERO to LAD, Ao to Radial to OM1 sequential to OM3, Ao to RSVG to LPL) on 07/26/[address] Roldan #2
Past medical history:
Abdominal aortic aneurysm
Hypertension
Hyperlipidemia
DM2
Syncope
Obstructive sleep apnea
Erectile dysfunctional
Bradycardia
Carotid artery disease
Depression
Glaucoma
Fatty liver
Lyme�disease
Colon polys
Subjective
Procedure
S/P In situ CORDERO to LAD, Ao to Radial to OM1 sequential to OM3, Ao to RSVG to LPL) on 07/26/[address] Martinez�
-
Date of Service: July 28, 2025
Objective Data
-
PT 16.8 Sec (11.4-14.6) H 07/26/25 11:56
INR 1.33 07/26/25 11:56
APTT 31.9 Sec (23.4-35.0) 07/26/25 11:56
Vital Signs
Vital Signs
Temp Pulse Resp BP Pulse Ox
99.2 F 64 18 108/50 97
07/28/25 04:00 07/28/25 04:00 07/28/25 04:00 07/28/25 04:00 07/28/25 04:00
CT Intake/Output/Weight
07/27/25 07/27/25 07/28/25
06:59 18:59 06:59
Intake Total 1626.7 / 3791.5 1425.1 / 3004.0 1578.9 / 3004.0
Output Total 845 / 2810 495 / 1060 565 / 1060
Balance 781.7 / 981.5 930.1 / 1944.0 1013.9 / 1944.0
SaO2: 97
Physical Exam
-
General: Awake, Oriented and AOx3
Cardiovascular: Regular rate & rhythm, No Murmurs and No Rub
Respiratory: Clear, Equal and Decreased Breath Sounds
Sternum: Stable
Incision: Clean, Dry and Intact
Extremities: No Edema and No Erythema
Data Reviewed
-
Lab Results: Results Reviewed
Medications: Active Meds Reviewed
Chest X-Ray: Report Reviewed
ECG: Report Reviewed
[2025-07-28 05:08] LABS: Hematocrit 25.1 % (39.0-52.0); Hemoglobin 8.2 g/dL (13.0-18.0); Mean Corp Hgb Conc. 32.7 g/dL (33.0-37.0); Mean Corpuscular Volume 94.0 fL (80.0-94.0); Platelet Count 100 10^3/uL (130-400); Red Cell Dist. Width 13.6 % (11.5-14.5)
[2025-07-28 05:13] LABS: Blood Urea Nitrogen 17 mg/dl (9-20); Calcium 8.2 mg/dl (8.4-10.2); Carbon Dioxide 29 mmol/L (22-30); Chloride 106 mmol/L (98-107); Estimated Creatinine Clearance 103 ml/min; Glucose 149 mg/dl (70-99); Magnesium 1.9 mg/dl (1.6-2.3); Potassium 4.2 mmol/L (3.5-5.1); Sodium 135 mmol/L (135-145); eGFR > 60.00
--- NOTE | 2025-07-28 05:15 | PTCARENOTE ---
Patient resting in bed. AM labs collected and sent. No further changes from previous assessment. Assessment/Interventions as documented.
[2025-07-28] MEDS: TYLENOL 975 MG PO ×3 (05:35→22:02)
--- NOTE | 2025-07-28 07:42 | PTCARENOTE ---
Pt received from outgolaw RN, POD 2 Cabg in bed, aaox4, Rt IJ cordis/slick, 2lnc o2, BP labile on Levophed, Rt radial bartolo, PIV RAC 18, CT x4, V wire back up 40//8, james. Increased Midodrine dosing this AM, continue to wean levophed and o2, oob
as tolerated.
[2025-07-28] MEDS: BACTROBAN 2% OINTMENT 1 APPLIC NASAL ×2 (08:01→20:02)
[2025-07-28] MEDS: FLOMAX 0.4 MG PO (08:01)
[2025-07-28] MEDS: PLAVIX 75 MG PO (08:01)
[2025-07-28] MEDS: EFFEXOR XR 150 MG PO (08:01)
[2025-07-28] MEDS: ZETIA 10 MG PO (08:01)
[2025-07-28] MEDS: SENOKOT 8.6 MG PO (08:01)
[2025-07-28] MEDS: LOW STRENGTH ASPIRIN 81 MG PO (08:01)
[2025-07-28] MEDS: PROTONIX 40 MG PO (08:01)
[2025-07-28] MEDS: NEURONTIN 100 MG PO ×2 (08:01→15:49)
[2025-07-28] MEDS: TIMOPTIC 0.5% OPHTHALMIC SOLUTION 1 DROP OPHTH (08:02)
[2025-07-28] MEDS: PACERONE 200 MG PO ×3 (08:02→22:02)
[2025-07-28] MEDS: CRESTOR 40 MG PO (08:02)
[2025-07-28] MEDS: MAGNESIUM OXIDE 400 MG PO ×2 (08:02→20:01)
[2025-07-28] MEDS: LIDOCAINE 4% PATCH TOPICAL (08:03)
[2025-07-28] MEDS: GLUCOPHAGE 1000 MG PO ×2 (08:49→17:53)
--- NOTE | 2025-07-28 10:05 | W.PN.CARDCBS ---
Today's Communication / Plan
-
Remains in sinus. Continue amiodarone.
Blood pressure remains on the low side. Continue midodrine. Creatinine normal.
Continue aspirin and Plavix.
No further bradycardia.
Impression / Plan
-
Primary extruder: Dr. Urvashi Sanchez
Assessment:
CAD
s/p OM PCI 2005 with residual disease
s/p In situ CORDERO to LAD, Ao to Radial to OM1 sequential to OM3, Ao to RSVG to LPL, BUBBA clip 07/26/25
HTN
HLD with elevated LP(a)
DM2
AAA s/p endovascular repair with aortoiliac endograft 12/2024
History of vasovagal syncope
Chronic sinus bradycardia
VIKY
Carotid artery disease
Alpha 1 anti-trypsin PIMS phenotype
ECHO 07/01/25: EF 55%, MAC, trace MR, normal right heart, PAP 27 mmHg, ascending aorta 3.8 cm, suspected atherosclerosis of aortic arch
Plan:
-s/p In situ CORDERO to LAD, Ao to Radial to OM1 sequential to OM3, Ao to RSVG to LPL, BUBBA clip 07/26/25
-Off pressors. Blood pressure remains marginal. Continue midodrine.
-Eventually start calcium channel denisa for radial graft.
- No further bradycardia. Hold metoprolol. Okay to continue amiodarone.
-Hemoglobin at 8.2. Creatinine is normal
-He has known hyperlipidemia with elevated LP(a). As outpatient is on regimen of Praluent, Crestor, Zetia
- Continue aspirin, Plavix, and Crestor
Progress Note - Oyster Harvester
Subjective
Date of Service: July 28, 2025
Denies chest pains. Remains in sinus rhythm. Overall improving
Objective
Labs:
07/28/25 04:29
07/28/25 04:29
Labs
Hgb 8.2 g/dL (13.0-18.0) L 07/28/25 04:29
Hct 25.1 % (39.0-52.0) L 07/28/25 04:29
Plt Count 100 10^3/uL (130-400) L 07/28/25 04:29
PT 16.8 Sec (11.4-14.6) H 07/26/25 11:56
INR 1.33 07/26/25 11:56
APTT 31.9 Sec (23.4-35.0) 07/26/25 11:56
Sodium 135 mmol/L (135-145) 07/28/25 04:29
Potassium 4.2 mmol/L (3.5-5.1) 07/28/25 04:29
BUN 17 mg/dl (9-20) 07/28/25 04:29
Creatinine 0.8 mg/dL (0.7-1.3) 07/28/25 04:29
Glucose 149 mg/dl (70-99) H 07/28/25 04:29
Vital Signs and I&O:
Vital Signs
Temp Pulse Resp BP Pulse Ox
99.5 F 58 29 94/61 95
07/28/25 07:58 07/28/25 09:30 07/28/25 09:30 07/28/25 09:30 07/28/25 09:30
Vital Signs
Temp Pulse Resp BP Pulse Ox
99.5 F 58 29 94/61 95
07/28/25 07:58 07/28/25 09:30 07/28/25 09:30 07/28/25 09:30 07/28/25 09:30
Intake & Output
07/26/25 07/27/25 07/28/25 07/29/25
06:59 06:59 06:59 06:59
Intake Total 3746.7 / 3791.5 3270.3 / 3401.6 378.8 / 378.8
Output Total 2770 / 2810 1240 / 1280 145 / 145
Balance 976.7 / 981.5 2030.3 / 2121.6 233.8 / 233.8
Physical Exam
Physical Exam
GEN: No distress, awake, Ox3
HEENT: supple, anicteric, mmm
LUNGS: CTA, no wheezes/rales
CV: Reg, S1/S2, no murmur
ABD: soft, BS+, NT/ND
EXT: No edema
NEURO: Gross non-focal
SKIN: sternotomy
[2025-07-28] MEDS: NSS IV (11:11)
[2025-07-28] MEDS: ZOFRAN 4 MG IV (11:30)
--- NOTE | 2025-07-28 12:07 | PTCARENOTE ---
Pt reassessment unchanged from previous, vss, ra, off levophed on midodrine, dc LP ct, MSx2 keep till tomorrow, jacob dced DTV @ 1600, Holly dced.
[2025-07-28 12:15] LABS: Glucose - Point of Care 143 mg/dl (70-99)
[2025-07-28] MEDS: NOVOLOG FLEXPEN-MODERATE RESISTANCE SC ×2 (12:16→17:56)
[2025-07-28] MEDS: LR IV ×2 (12:16→13:07)
--- NOTE | 2025-07-28 13:48 | PTCARENOTE ---
Patient received from previous RN resting oob in chair, having lunch, at bedside. Denies pain. NSR via cm, SaO2 @ 87% on RA, 2lnc applied w/O2 to 97%. Mediastinal chest tubes x 2, Y-connected to one pleurevac, to -20cm suction w/no air leak
noted. All procedural sites stable. Ruff catheter d/c'd earlier this am, DTV, denies urge. Patient and spouse updated to plan of care, in agreement. See work list for full assessment and interventions performed.
[2025-07-28] MEDS: FERRLECIT 110 MG IV (13:55)
[2025-07-28] MEDS: TYLENOL PO (15:09)
--- NOTE | 2025-07-28 16:00 | PTCARENOTE ---
VS obtained, assessment stable. Patient remains oob in chair. Stood to attempt to void, unable. Bladder scan performed. Patient denies urge, discomfort - no distention noted.
[2025-07-28 17:55] LABS: Glucose - Point of Care 135 mg/dl (70-99)
[2025-07-28] MEDS: REMOVE LIDOCAINE PATCH REMOVE (20:01)
[2025-07-28] MEDS: SENOKOT PO (20:01)
[2025-07-28] MEDS: ROXICODONE 5 MG PO (20:03)
--- NOTE | 2025-07-28 20:26 | PTCARENOTE ---
received pt from previous rn. pt AAOx4, VSS. SB/NSR per tele monitor HR 50-60s. trace generalized anasarca. v wire insulated. +pulses. pox 96% on RA. lungs clear, diminished at bases. CTx2 to -20cm suction no air leaks/crepitus/tidaling. +bs. pt
DTV, denies urge. all surgical incisions intact. RIJ cordis infusing kvo. PIV x1 intact. plan of care discussed and questions encouraged. see worklist for full nursing assessment and interventions.
[2025-07-28 21:54] LABS: Glucose - Point of Care 144 mg/dl (70-99)
[2025-07-28] MEDS: XALATAN OPHTHALMIC SOLUTION 1 DROP OPHTH (22:03)
[2025-07-28] MEDS: NEURONTIN PO (22:03)
--- NOTE | 2025-07-28 23:44 | PTCARENOTE ---
pt reassessed. pt able to void in urinal. See I&Os flowsheet. VSS. Sinus ivan per tele monitor HR 50s. otherwise assessment unchanged.
[2025-07-29] VITALS (15 sets, daily range): BP systolic 97–133; BP diastolic 60–83; PULSE 59; O2SAT 97–98; BMI 25.5
--- NOTE | 2025-07-29 00:51 | W.PN.CT ---
Today's Communication / Plan
-
No issues overnight
Labile�BP�(concern for�vasovagal),�started on�midodrine�(10mg�TID)�
Current meds (Amiodarone,�Norvasc,�ASA,�Plavix,�gabapentin,�Lopressor,�protonix,�flomax)�
CT�=�2 MS��150/30�=�180
Maintain v�wires�
Encourage IS, OOB�
Assessment / Plan
-
S/P In situ CORDERO to LAD, Ao to Radial to OM1 sequential to OM3, Ao to RSVG to LPL) on 07/26/[address] Roldan #3
Past medical history:
Abdominal aortic aneurysm
Hypertension
Hyperlipidemia
DM2
Syncope
Obstructive sleep apnea
Erectile dysfunctional
Bradycardia
Carotid artery disease
Depression
Glaucoma
Fatty liver
Lyme�disease
Colon polys
Subjective
Procedure
S/P In situ CORDERO to LAD, Ao to Radial to OM1 sequential to OM3, Ao to RSVG to LPL) on 07/26/[address] Martinez�
-
Date of Service: July 29, 2025
Objective Data
-
PT 16.8 Sec (11.4-14.6) H 07/26/25 11:56
INR 1.33 07/26/25 11:56
APTT 31.9 Sec (23.4-35.0) 07/26/25 11:56
Vital Signs
Vital Signs
Temp Pulse Resp BP Pulse Ox
98.6 F 61 18 127/51 96
07/28/25 23:43 07/28/25 22:37 07/28/25 23:43 07/28/25 22:37 07/28/25 23:43
CT Intake/Output/Weight
07/28/25 07/28/25 07/29/25
06:59 18:59 06:59
Intake Total 1845.2 / 3401.6 1548.8 / 1608.8 60 / 1608.8
Output Total 745 / 1280 275 / 555 280 / 555
Balance 1100.2 / 2121.6 1273.8 / 1053.8 -220 / 1053.8
SaO2: 96
Physical Exam
-
General: Awake, Oriented and AOx3
Cardiovascular: Regular rate & rhythm
Respiratory: Clear and Equal
Sternum: Stable
Incision: Clean, Dry and Intact
Extremities: Edema +1
--- NOTE | 2025-07-29 03:20 | PTCARENOTE ---
AM labs obtained. pt voiding in urinal at bedside. VSS. Sinus ivan per tele monitor HR 50s.
[2025-07-29 03:28] LABS: Hematocrit 25.5 % (39.0-52.0); Hemoglobin 8.2 g/dL (13.0-18.0); Mean Corp Hgb Conc. 32.2 g/dL (33.0-37.0); Mean Corpuscular Volume 90.7 fL (80.0-94.0); Platelet Count 127 10^3/uL (130-400); Red Cell Dist. Width 13.6 % (11.5-14.5)
[2025-07-29 04:01] LABS: Blood Urea Nitrogen 16 mg/dl (9-20); Calcium 8.2 mg/dl (8.4-10.2); Carbon Dioxide 28 mmol/L (22-30); Chloride 106 mmol/L (98-107); Estimated Creatinine Clearance 103 ml/min; Glucose 120 mg/dl (70-99); Magnesium 2.0 mg/dl (1.6-2.3); Potassium 4.1 mmol/L (3.5-5.1); Sodium 136 mmol/L (135-145); eGFR > 60.00
[2025-07-29] MEDS: TYLENOL 975 MG PO ×3 (06:15→21:34)
[2025-07-29 08:46] LABS: Glucose - Point of Care 139 mg/dl (70-99)
[2025-07-29] MEDS: MAGNESIUM OXIDE 400 MG PO ×2 (08:46→20:07)
[2025-07-29] MEDS: NEURONTIN 100 MG PO ×3 (08:46→21:32)
[2025-07-29] MEDS: PACERONE 200 MG PO ×3 (08:47→21:33)
[2025-07-29] MEDS: LOW STRENGTH ASPIRIN 81 MG PO (08:47)
[2025-07-29] MEDS: FLOMAX 0.4 MG PO (08:47)
[2025-07-29] MEDS: PLAVIX 75 MG PO (08:47)
[2025-07-29] MEDS: GLUCOPHAGE 1000 MG PO ×2 (08:47→17:36)
[2025-07-29] MEDS: EFFEXOR XR 150 MG PO (08:47)
[2025-07-29] MEDS: PROTONIX 40 MG PO (08:47)
[2025-07-29] MEDS: SENOKOT PO ×2 (08:47→21:29)
[2025-07-29] MEDS: CRESTOR 40 MG PO (08:47)
[2025-07-29] MEDS: ZETIA 10 MG PO (08:47)
[2025-07-29] MEDS: NOVOLOG FLEXPEN-MODERATE RESISTANCE SC (08:48)
[2025-07-29] MEDS: BACTROBAN 2% OINTMENT 1 APPLIC NASAL ×2 (08:48→20:06)
[2025-07-29] MEDS: LIDOCAINE 4% PATCH TOPICAL (08:48)
[2025-07-29] MEDS: TIMOPTIC 0.5% OPHTHALMIC SOLUTION 1 DROP OPHTH (08:48)
--- NOTE | 2025-07-29 09:00 | PTCARENOTE ---
Patient received from slot shift supervisor RN; AAOx3, responds spontaneously to RN and follows commands; VSS; SB with SR on monitor; Patient complains of dizziness and lightheadedness with positional changes; Epicardial V-wire insulated; Trace generalized
edema and +1 LUE edema; +2 DP, left ulnar, and right radial pulses; CTx2 connected to -20 cm wall suction - no air leak, tidaling, or crepitus noted; Lungs diminished at bases; SpO2 95-98% on 2L NC; Patient urinating clear, coleen urine; RIJ Cordis
and PIVx1 present; Surgical sites intact; See nursing documentation for further information
[2025-07-29] MEDS: LASIX 20 MG IV (10:20)
--- NOTE | 2025-07-29 11:41 | CM ---
Chart reviewed. Patient is independent of ADLS, lives with his in a 2 STH, 1st level set up, 2 STANLEY, 0 DME. Plan is for the patient to return home with CT Transitional RN. CM to follow
--- NOTE | 2025-07-29 11:57 | W.PN.CARDCBS ---
Addendum entered and electronically signed by Gibson Mathew MD 07/29/25 12:58:
I saw and examined the patient.
The HOP SEPARATOR or PA's note was reviewed and I agree with the note.
Comment: General: Well developed, well nourished in NAD.
Neck: Supple, no JVD, HJR, carotids +2 B/L, no bruits bilaterally.
Heart: Non displaced PMI, RRR, no murmurs, No S3, S4, no rubs.
Lungs: Scattered rhonchi
Sternal dressings noted
Extremities: No clubbing, cyanosis or edema bilaterally.
Neuro: Grossly nonfocal, awake, alert and oriented x3.
Stable cardiology status status post CABG. Continue midodrine for hypotension. Remains in sinus rhythm
Original Note:
Today's Communication / Plan
-
New to midodrine this admission for hypotension
Impression / Plan
-
PCP: Dr. Jenkins
Primary stile ripsaw operator: Dr. Urvashi Sanchez
Impression:
Admitted for planned CABG 07/26/25
CAD
s/p OM PCI 2005 with residual disease
s/p In situ CORDERO to LAD, Ao to Radial to OM1 sequential to OM3, Ao to RSVG to LPL, BUBBA clip 07/26/25
HTN
HLD with elevated LP(a)
DM2
AAA s/p endovascular repair with aortoiliac endograft 12/2024
History of vasovagal syncope
Chronic sinus bradycardia
VIKY
Carotid artery disease
Alpha 1 anti-trypsin PIMS phenotype
ECHO 07/01/25: EF 55%, MAC, trace MR, normal right heart, PAP 27 mmHg, ascending aorta 3.8 cm, suspected atherosclerosis of aortic arch
LISBETH 07/26/2025: Intraoperative study, normal LV size and function without WMA, postop EF 55 to 60% without WMA
Plan:
-Patient had an abnormal outpatient stress test leading to cardiac catheterization where he was found to have MV CAD and then he return for planned CABG on 07/26/2025
-Outpatient dose of aspirin 81 mg daily has been continued and he was newly started on Plavix 75 mg daily
-Patient with known hyperlipidemia with elevated LP(a) and outpatient doses of Praluent 75 mg SQ every 2 weeks, Crestor 40 mg daily, Zetia 10 mg daily has been continued
-Due to midodrine 10 mg TID this admission
-Patient was not taking BP meds prior to admission and CT surgery team is hoping to eventually start CCB for radial graft patency
-Amiodarone started postop
Progress Note - Asset Availability Leader
Subjective
Date of Service: July 29, 2025
No pain
Objective
Labs:
07/29/25 03:01
07/29/25 03:01
Labs
Hgb 8.2 g/dL (13.0-18.0) L 07/29/25 03:01
Hct 25.5 % (39.0-52.0) L 07/29/25 03:01
Plt Count 127 10^3/uL (130-400) L D 07/29/25 03:01
PT 16.8 Sec (11.4-14.6) H 07/26/25 11:56
INR 1.33 07/26/25 11:56
APTT 31.9 Sec (23.4-35.0) 07/26/25 11:56
Sodium 136 mmol/L (135-145) 07/29/25 03:01
Potassium 4.1 mmol/L (3.5-5.1) 07/29/25 03:01
BUN 16 mg/dl (9-20) 07/29/25 03:01
Creatinine 0.8 mg/dL (0.7-1.3) 07/29/25 03:01
Glucose 120 mg/dl (70-99) H 07/29/25 03:01
Vital Signs and I&O:
Vital Signs
Temp Pulse Resp BP Pulse Ox
98.6 F 61 18 116/74 96
07/29/25 11:47 07/29/25 11:30 07/29/25 11:47 07/29/25 11:30 07/29/25 11:47
Vital Signs
Temp Pulse Resp BP Pulse Ox
98.6 F 61 18 116/74 96
07/29/25 11:47 07/29/25 11:30 07/29/25 11:47 07/29/25 11:30 07/29/25 11:47
Intake & Output
07/27/25 07/28/25 07/29/25 07/30/25
06:59 06:59 06:59 06:59
Intake Total 3746.7 / 3791.5 3270.3 / 3401.6 1638.8 / 1638.8
Output Total 2770 / 2810 1240 / 1280 805 / 805 1150 / 1150
Balance 976.7 / 981.5 2030.3 / 2121.6 833.8 / 833.8 -1150 / -1150
Physical Exam
Physical Exam
GEN: NAD
LUNGS: 2 L NC.
CV: Reg, S1/S2, no rub
EXT: No edema
NEURO: Gross non-focal
SKIN: sternotomy
--- NOTE | 2025-07-29 12:30 | PTCARENOTE ---
Epicardial V-wire pulled by CVNP Sheri Blackmon at bedside - maintained on bedrest for one hour and VSS throughout; Mediastinal chest tubes d/c'd at bedside by RN - no complications noted; IV Lasix 20 mg ordered and given with good effect; Patient
ambulating in hallway with RN and cardiac rehab - states he feels dizzy and lightheaded at times but able to tolerate ambulation
[2025-07-29] MEDS: NOVOLOG FLEXPEN-MODERATE RESISTANCE 1 UNITS SC ×2 (12:48→18:19)
[2025-07-29 12:50] LABS: Glucose - Point of Care 158 mg/dl (70-99)
[2025-07-29] MEDS: NSS 500 IV (12:50)
[2025-07-29] MEDS: FERRLECIT 110 MG IV (13:15)
--- NOTE | 2025-07-29 15:43 | PTCARENOTE ---
Patient weaned to room air - SpO2 92-97% on RA; Patient ambulating in hallways with RN - complains of dizziness and lightheadedness at first but states it improved with ambulation and that the strength in his legs feels improved; Patient resting
comfortably in chair
[2025-07-29 17:35] LABS: Glucose - Point of Care 153 mg/dl (70-99)
--- NOTE | 2025-07-29 20:00 | PTCARENOTE ---
Assumed care patient 1900, Patient alert and oriented following commands, denies pain. Vital signs stable. Lung soiund diminished at bases. Sinus ivan 54-65 BPM. 97% on room air, Chest tube site, CDI. Cordis flushes, PIV CDI
[2025-07-29] MEDS: REMOVE LIDOCAINE PATCH REMOVE (20:08)
[2025-07-29] MEDS: XALATAN OPHTHALMIC SOLUTION 1 DROP OPHTH (21:36)
[2025-07-29 21:41] LABS: Glucose - Point of Care 124 mg/dl (70-99)
--- NOTE | 2025-07-29 22:00 | PTCARENOTE ---
patient OOB and ambulated to bathroom, voided with out difficulty, was lightheaded on first standing but passed, reminded him to keep eyes open when walking or standing. Patient washed face and haf CHG bath, oral care completed by patient. Return
to bed, denies lightheadedness or pain.
[2025-07-30] VITALS (21 sets, daily range): BP systolic 87–121; BP diastolic 56–86; PULSE 57; O2SAT 97–98; BMI 25.3
[2025-07-30 03:56] LABS: Hematocrit 24.2 % (39.0-52.0); Hemoglobin 7.5 g/dL (13.0-18.0); Mean Corp Hgb Conc. 31.0 g/dL (33.0-37.0); Mean Corpuscular Volume 94.2 fL (80.0-94.0); Platelet Count 123 10^3/uL (130-400); Red Cell Dist. Width 13.6 % (11.5-14.5)
[2025-07-30 04:28] LABS: Blood Urea Nitrogen 16 mg/dl (9-20); Calcium 7.9 mg/dl (8.4-10.2); Carbon Dioxide 30 mmol/L (22-30); Chloride 105 mmol/L (98-107); Estimated Creatinine Clearance 91 ml/min; Glucose 110 mg/dl (70-99); Magnesium 2.0 mg/dl (1.6-2.3); Potassium 3.5 mmol/L (3.5-5.1); Sodium 138 mmol/L (135-145); eGFR > 60.00
[2025-07-30] MEDS: CALCIUM GLUCONATE 130 MG IV (04:30)
[2025-07-30] MEDS: TYLENOL 975 MG PO ×3 (06:03→22:02)
[2025-07-30] MEDS: KCL 40 MEQ PO (06:03)
[2025-07-30 07:06] LABS: Glucose - Point of Care 118 mg/dl (70-99)
[2025-07-30] MEDS: NOVOLOG FLEXPEN-MODERATE RESISTANCE SC ×3 (07:23→17:53)
--- NOTE | 2025-07-30 07:31 | W.PN.CT ---
Today's Communication / Plan
-
Plan:
-No major issues overnight. Hemodynamically and neurologically intact
-Postop hypotension, requiring initiation of Midodrine
-Holding BB
-Noted to be bradycardic postop, especially @ night. Decreased Amiodarone from 200 mg TID to 200 mg BID
-H/H 7.5/24.2 this AM, wt up 13 lbs from preop so may be hemodiluted. Monitor for possible transfusion given ongoing dizziness
-Cont. diuresis if BP permits
-Will replete K of 3.5 this AM
-D/C cordis
-F/U 2-view cxr
-OOB into chair/Ambulate
-Likely home in 1-2 days
Assessment / Plan
-
S/P In situ CORDERO to LAD, Ao to Radial to OM1 sequential to OM3, Ao to RSVG to LPL) on 07/26/[address] Roldan #4
Past medical history:
Abdominal aortic aneurysm
Hypertension
Hyperlipidemia
DM2
Syncope
Obstructive sleep apnea
Erectile dysfunctional
Bradycardia
Carotid artery disease
Depression
Glaucoma
Fatty liver
Lyme�disease
Colon polys
-Acute postop blood loss/Anemia (stable without trasfusion)
-Acute postop thrombocytopenia (stable without active bleed)
-Acute postop atelectasis/pulmonary insufficiency
-Acute postop orthostasis
-Acute postop hypovolemia with subsequent hypervolemia
-Acute postop bradycardia
Discussed patient care with: Cardiology, Nursing, Respiratory Therapy, Pharmacy and Care Team
Subjective
Procedure
S/P In situ CORDERO to LAD, Ao to Radial to OM1 sequential to OM3, Ao to RSVG to LPL) on 07/26/[address] Martinez�
-
Date of Service: July 30, 2025
Pt c/o lightheadedness/dizziness with ambulation which is improving
Objective Data
-
Lab Results
07/30/25 03:44
07/30/25 03:44
PT 16.8 Sec (11.4-14.6) H 07/26/25 11:56
INR 1.33 07/26/25 11:56
APTT 31.9 Sec (23.4-35.0) 07/26/25 11:56
Vital Signs
Vital Signs
Temp Pulse Resp BP Pulse Ox
98.4 F 54 20 102/72 95
07/30/25 07:07 07/30/25 07:07 07/30/25 07:07 07/30/25 07:07 07/30/25 07:07
CT Intake/Output/Weight
07/29/25 07/30/25 07/30/25
18:59 06:59 18:59
Intake Total 480 / 480
Output Total 1525 / 2375 850 / 2375
Balance -1525 / -1895 -370 / -1895
SaO2: 95 (RA)
Physical Exam
-
General: Awake, Oriented and AOx3
Cardiovascular: Regular rate & rhythm, No Murmurs, No Rub and No Gallop
Respiratory: Decreased Breath Sounds (at bases, otherwise clear)
Sternum: Stable
Incision: Clean, Dry, Intact and Dressing Intact
Extremities: Other (+trace edema)
Data Reviewed
-
Lab Results: Results Reviewed
Medications: Active Meds Reviewed
Chest X-Ray: Report Reviewed and Image Reviewed
ECG: Report Reviewed and Image Reviewed
[2025-07-30] MEDS: PACERONE 200 MG PO (07:49)
[2025-07-30] MEDS: EFFEXOR XR 150 MG PO (07:49)
[2025-07-30] MEDS: MAGNESIUM OXIDE 400 MG PO ×2 (07:49→20:47)
[2025-07-30] MEDS: PLAVIX 75 MG PO (07:49)
[2025-07-30] MEDS: FLOMAX 0.4 MG PO (07:49)
[2025-07-30] MEDS: PROTONIX 40 MG PO (07:49)
[2025-07-30] MEDS: ZETIA 10 MG PO (07:49)
[2025-07-30] MEDS: NEURONTIN 100 MG PO ×3 (07:49→22:02)
[2025-07-30] MEDS: GLUCOPHAGE 1000 MG PO ×2 (07:49→17:55)
[2025-07-30] MEDS: CRESTOR 40 MG PO (07:49)
[2025-07-30] MEDS: SENOKOT PO ×2 (07:50→20:47)
[2025-07-30] MEDS: BACTROBAN 2% OINTMENT 1 APPLIC NASAL (07:50)
[2025-07-30] MEDS: TIMOPTIC 0.5% OPHTHALMIC SOLUTION 1 DROP OPHTH (07:50)
[2025-07-30] MEDS: LOW STRENGTH ASPIRIN 81 MG PO (07:50)
[2025-07-30] MEDS: NSS IV (08:55)
--- NOTE | 2025-07-30 09:01 | PTCARENOTE ---
Patient received from machinist 2nd shift RN; AAOx3, responds spontaneously to RN and follows commands; VSS; SB with SR on monitor; Patient complains of dizziness and lightheadedness with positional changes; Trace generalized edema; +2 DP, left ulnar, and
right radial pulses; Lungs clear throughout; SpO2 95-98% on RA; Patient urinating clear, yellow urine; RIJ Cordis and PIVx1 present; Surgical sites intact; See nursing documentation for further information
--- NOTE | 2025-07-30 11:30 | CM ---
Chart reviewed. Patient OOB ambulating the halls with cardiac rehab. Patient is independent of ADLS, lives with his in a 2 STH, 1st level set up, 2 STANLEY, 0 DME. Plan is for the patient to return home with CT Transitional RN. CM to follow
--- NOTE | 2025-07-30 11:39 | W.PN.CARDCBS ---
Today's Communication / Plan
-
Consider transfusion
Diurese as able
Monitor blood pressures and continue midodrine
Continue PT/cardiac rehab efforts
Impression / Plan
-
PCP: Dr. Jenkins
Primary warp dresser: Dr. Urvashi Sanchez
Impression:
Admitted for planned CABG 07/26/25
CAD
s/p OM PCI 2005 with residual disease
s/p In situ CORDERO to LAD, Ao to Radial to OM1 sequential to OM3, Ao to RSVG to LPL, BUBBA clip 07/26/25
HTN
HLD with elevated LP(a)
DM2
AAA s/p endovascular repair with aortoiliac endograft 12/2024
History of vasovagal syncope
Chronic sinus bradycardia
VIKY
Carotid artery disease
Alpha 1 anti-trypsin PIMS phenotype
ECHO 07/01/25: EF 55%, MAC, trace MR, normal right heart, PAP 27 mmHg, ascending aorta 3.8 cm, suspected atherosclerosis of aortic arch
LISBETH 07/26/2025: Intraoperative study, normal LV size and function without WMA, postop EF 55 to 60% without WMA
Plan:
Unstable angina with abnormal outpatient stress test found to have multivessel coronary disease on cardiac catheterization now status post S/P In situ CORDERO to LAD, Ao to Radial to OM1 sequential to OM3, Ao to RSVG to LPL) on 07/26/[address] Martinez�
-Hemodynamically stable and doing well and declined
-Postop hypotension requiring midodrine
-Postop anemia with hemoglobin this morning 7.5�consider transfusion today with Lasix to follow. Discussed with CT surgery
-Outpatient dose of aspirin 81 mg daily has been continued and he was newly started on Plavix 75 mg daily
-Patient with known hyperlipidemia with elevated LP(a) and outpatient doses of Praluent 75 mg SQ every 2 weeks, Crestor 40 mg daily, Zetia 10 mg daily has been continued
- Postop bradycardia with prophylactic amiodarone reduced to 200 mg twice daily. Remains in sinus rhythm.
-Patient was not taking BP meds prior to admission and CT surgery team is hoping to eventually start CCB for radial graft patency
- Continue cardiac rehab efforts
Will follow with
Progress Note - Trolley Operator
Subjective
Date of Service: July 30, 2025
Seen and examined. Sitting out of bed to chair and reports no symptoms. Ambulated in the halls yesterday and around his room today without symptoms. No chest pain or pressure. No shortness of breath. Voiding well and has had BM
Objective
Labs:
07/30/25 03:44
07/30/25 03:44
Labs
Hgb 7.5 g/dL (13.0-18.0) L 07/30/25 03:44
Hct 24.2 % (39.0-52.0) L 07/30/25 03:44
Plt Count 123 10^3/uL (130-400) L 07/30/25 03:44
PT 16.8 Sec (11.4-14.6) H 07/26/25 11:56
INR 1.33 07/26/25 11:56
APTT 31.9 Sec (23.4-35.0) 07/26/25 11:56
Sodium 138 mmol/L (135-145) 07/30/25 03:44
Potassium 3.5 mmol/L (3.5-5.1) 07/30/25 03:44
BUN 16 mg/dl (9-20) 07/30/25 03:44
Creatinine 0.9 mg/dL (0.7-1.3) 07/30/25 03:44
Glucose 110 mg/dl (70-99) H 07/30/25 03:44
Vital Signs and I&O:
Vital Signs
Temp Pulse Resp BP Pulse Ox
98.4 F 54 20 102/72 97
07/30/25 07:07 07/30/25 09:00 07/30/25 07:07 07/30/25 07:07 07/30/25 10:01
Vital Signs
Temp Pulse Resp BP Pulse Ox
98.4 F 54 20 102/72 97
07/30/25 07:07 07/30/25 09:00 07/30/25 07:07 07/30/25 07:07 07/30/25 10:01
Intake & Output
07/28/25 07/29/25 07/30/25 07/31/25
06:59 06:59 06:59 06:59
Intake Total 3270.3 / 3401.6 1638.8 / 1638.8 480 / 480
Output Total 1240 / 1280 805 / 805 2375 / 2375
Balance 2030.3 / 2121.6 833.8 / 833.8 -1895 / -1895
Physical Exam
Physical Exam
General: No acute distress, AAOX3
Neck:+ cortis
Heart: Regular, positive S1/S2, No murmur
Lungs: CTA b/l, negative wheezes/rales/rhonchi
Abd: Positive BS, NT/ND, neg rebound/rigidity/guarding
Ext: trace edema
Neuro: nonfocal
--- NOTE | 2025-07-30 12:15 | PTCARENOTE ---
pt VSS, 1 unit PRBC transfusing as ordered. agree w/ previous medical associate. at bedside.
[2025-07-30 12:43] LABS: Glucose - Point of Care 99 mg/dl (70-99)
[2025-07-30] MEDS: LASIX 40 MG IV (14:15)
--- NOTE | 2025-07-30 16:00 | PTCARENOTE ---
pt VSS, no changes in assessment. OOB in chair. no c/o pain or dizziness.
[2025-07-30 17:53] LABS: Glucose - Point of Care 131 mg/dl (70-99)
--- NOTE | 2025-07-30 20:00 | PTCARENOTE ---
Patient received sitting in agusto, offers no complaints. Sinus Bradycardia on monitor,afebrile,blood pressure as documented. Palpable pulses throughout, trace general anasarca noted. Lungs clear,diminished bibasilar,pulse ox 97% on room air..
Abdomen round. Voiding. Sternal incision open to air left arm incision, right groin and right leg incision open to air. #18 g in RAC flushed and patent,RIJ Cordis with KVO. Plan of care discussed,call batres within reach
[2025-07-30] MEDS: REMOVE LIDOCAINE PATCH REMOVE (20:47)
[2025-07-30] MEDS: PACERONE PO (20:47)
[2025-07-30] MEDS: XALATAN OPHTHALMIC SOLUTION 1 DROP OPHTH (22:02)
--- NOTE | 2025-07-30 23:30 | PTCARENOTE ---
Patient transferred to IVU
[2025-07-31] VITALS (7 sets, daily range): BP systolic 93–116; BP diastolic 64–73; BMI 24.9
[2025-07-31 04:26] LABS: Hematocrit 28.0 % (39.0-52.0); Hemoglobin 8.8 g/dL (13.0-18.0); Mean Corp Hgb Conc. 31.4 g/dL (33.0-37.0); Mean Corpuscular Volume 94.9 fL (80.0-94.0); Platelet Count 151 10^3/uL (130-400); Red Cell Dist. Width 14.0 % (11.5-14.5)
[2025-07-31 04:44] LABS: Blood Urea Nitrogen 17 mg/dl (9-20); Calcium 8.4 mg/dl (8.4-10.2); Carbon Dioxide 30 mmol/L (22-30); Chloride 107 mmol/L (98-107); Estimated Creatinine Clearance 91 ml/min; Glucose 102 mg/dl (70-99); Magnesium 2.1 mg/dl (1.6-2.3); Potassium 3.4 mmol/L (3.5-5.1); Sodium 137 mmol/L (135-145); eGFR > 60.00
[2025-07-31] MEDS: KCL 40 MEQ PO (05:55)
[2025-07-31] MEDS: TYLENOL 975 MG PO ×2 (05:55→13:55)
--- NOTE | 2025-07-31 06:30 | DOWNTIME ---
There was a Sponge Client Adjunct Spanish Instructor Downtime on 07/31/2025 from 0100 to 07/31/2025 at 0215. Downtime documentation of patient's care, including medication administrations, has been reconciled in the electronic record per guidelines. Refer to the
patient's paper chart under the miscellaneous tab to see printed paper medication records and downtime forms.
--- NOTE | 2025-07-31 08:22 | W.PN.CT ---
Today's Communication / Plan
-
-pod #5
-no issues overnight
-s/p 1 pRBC on 07/30. Hg is up from 7.5 to 8.8 today
-gavee 40 KCL po for K 3.4 this am
-holding Norvasc d/t hypotension
-holding Lopressor d/t bradycardia and hypotension
-Amio decreased to 200 bid d/t bradycardia
-encourage IS, ambulate
Assessment / Plan
-
S/P In situ CORDERO to LAD, Ao to Radial to OM1 sequential to OM3, Ao to RSVG to LPL) on 07/26/[address] Roldan #5
Past medical history:
Abdominal aortic aneurysm
Hypertension
Hyperlipidemia
DM2
Syncope
Obstructive sleep apnea
Erectile dysfunctional
Bradycardia
Carotid artery disease
Depression
Glaucoma
Fatty liver
Lyme�disease
Colon polys
-Acute postop blood loss/Anemia (stable without trasfusion)
-Acute postop thrombocytopenia (stable without active bleed)
-Acute postop atelectasis/pulmonary insufficiency
-Acute postop orthostasis
-Acute postop hypovolemia with subsequent hypervolemia
-Acute postop bradycardia
Discussed patient care with: Nursing and Care Team
Subjective
Procedure
S/P In situ CORDERO to LAD, Ao to Radial to OM1 sequential to OM3, Ao to RSVG to LPL) on 07/26/[address] Martinez�
-
Date of Service: July 31, 2025
Objective Data
-
Lab Results
07/31/25 04:02
07/31/25 04:02
PT 16.8 Sec (11.4-14.6) H 07/26/25 11:56
INR 1.33 07/26/25 11:56
APTT 31.9 Sec (23.4-35.0) 07/26/25 11:56
Vital Signs
Vital Signs
Temp Pulse Resp BP Pulse Ox
98.3 F 56 18 106/69 95
07/31/25 07:45 07/31/25 07:45 07/31/25 07:45 07/31/25 04:00 07/31/25 07:45
CT Intake/Output/Weight
07/30/25 07/31/25 07/31/25
18:59 06:59 18:59
Intake Total 250 / 370 120 / 370
Output Total 1400 / 1550 150 / 1550
Balance -1150 / -1180 -30 / -1180
SaO2: 95
Physical Exam
-
General: Awake and AOx3
Cardiovascular: Regular rate & rhythm, No Murmurs and No Rub
Respiratory: Decreased Breath Sounds
Sternum: Stable
Incision: Clean, Dry and Intact
Extremities: No Edema (2+ DPs b/l)
Abdomen: soft, nontender, ? slightly distended, no fever, nausea or abdominal pain. + BMs x3
Data Reviewed
-
Lab Results: Results Reviewed
Medications: Active Meds Reviewed
Chest X-Ray: Report Reviewed and Image Reviewed
ECG: Report Reviewed and Image Reviewed
[2025-07-31 08:37] LABS: Glucose - Point of Care 118 mg/dl (70-99)
[2025-07-31] MEDS: NOVOLOG FLEXPEN-MODERATE RESISTANCE SC ×2 (08:41→12:06)
[2025-07-31] MEDS: PACERONE 200 MG PO (08:42)
[2025-07-31] MEDS: ZETIA 10 MG PO (08:42)
[2025-07-31] MEDS: PROTONIX 40 MG PO (08:42)
[2025-07-31] MEDS: SENOKOT 8.6 MG PO (08:42)
[2025-07-31] MEDS: MAGNESIUM OXIDE 400 MG PO (08:42)
[2025-07-31] MEDS: LOW STRENGTH ASPIRIN 81 MG PO (08:42)
[2025-07-31] MEDS: PLAVIX 75 MG PO (08:43)
[2025-07-31] MEDS: EFFEXOR XR 150 MG PO (08:43)
[2025-07-31] MEDS: FLOMAX 0.4 MG PO (08:43)
[2025-07-31] MEDS: GLUCOPHAGE 1000 MG PO (08:43)
[2025-07-31] MEDS: TIMOPTIC 0.5% OPHTHALMIC SOLUTION 1 DROP OPHTH (08:43)
[2025-07-31] MEDS: CRESTOR 40 MG PO (08:43)
[2025-07-31] MEDS: NEURONTIN 100 MG PO (08:43)
[2025-07-31] MEDS: KCL 20 MEQ PO (08:49)
[2025-07-31] MEDS: LASIX 40 MG IV (08:49)
--- NOTE | 2025-07-31 09:07 | CM ---
Reviewed chart. Mr. Medina was transferred to IVU. Met with Mr. Medina to review discharge plans. He states he feels well and maybe able to go home soon. He state prior to admission he resides with his spouse in a two story home with two
steps to enter. He states his main suite is on the first floor. He states prior to admission he was independent with ambulation and adls. He states he has a CPAP Machine at home and no other DME. He states he has a prescription plan and uses
[facility]. He states his spouse will be home to assist in his care if needed. We reviewed a home visit by the Transitional Care Nurse. He is agreeable to a home visit. Medical work-up in progress. The discharge plan is to return home with his
spouse and a home visit by the Transitional Care Nurse when medically stable.
--- NOTE | 2025-07-31 09:54 | PTCARENOTE ---
Assumed care 0700. Patient in bed resting comfortable. AO x3. Lungs CTA, generalized anasarca, NSR HR 61. Denies lightheadedness with ambulation to the bathroom, using urinal at bedside, pale yellow urine. Surgical incisions healing. Right IJ
coditis removed. Plan of care reviewed, call batres in reach
--- NOTE | 2025-07-31 11:06 | PTCARENOTE ---
Walked in hallway, denies lightheadedness.
[2025-07-31 12:06] LABS: Glucose - Point of Care 104 mg/dl (70-99)
[2025-07-31] MEDS: NSS IV (12:49)
--- NOTE | 2025-07-31 13:34 | W.DCSUMMARY ---
Discharge Summary
Discharge Data
Date of Admission: 07/26/25
Date of Discharge: 07/31/25
Total time spent discharging patient (in min): 55
-
Pending Results: No
Hospital Course
Primary care physician:
Dr. Jenkins
Outpatient correspondence section supervisor:
Dr. Urvashi Sanchez
Inpatient consultants:
DCA, barmaid
Procedures:
1. Multi Arterial Coronary artery bypass grafting x 4 (In situ CORDERO to LAD, Ao to Radial to OM1 sequential to OM3, Ao to RSVG to LPL)
Primary Diagnosis:
1. Multivessel Coronary Artery Disease with a positive stress test
Secondary Diagnoses:
Abdominal aortic aneurysm
Hypertension
Hyperlipidemia
DM2
Syncope
Obstructive sleep apnea
Erectile dysfunctional
Bradycardia
Carotid artery disease
Depression
Glaucoma
Fatty liver
Lyme�disease
Colon polys
-Acute postop blood loss/Anemia (stable without trasfusion)
-Acute postop thrombocytopenia (stable without active bleed)
-Acute postop atelectasis/pulmonary insufficiency
-Acute postop orthostasis
-Acute postop hypovolemia with subsequent hypervolemia
-Acute postop bradycardia
HPI: 64-year-old male with history of previous stenting. He has a positive stress test in June 2025 and was ultimately recast. He was found to have multivessel coronary disease involving mostly the left circulatory system and presented on
07/[address] Martinez
Hospital course:
Patient was admitted on 07/[address] Martinez. He returned to the CVICU on Levophed, insulin, Precedex, and cortisone for his radial conduit. Patient had very labile blood pressures so Cardizem was turned off and he was given IV fluids. A
total of 1.5 L were given. Patient was weaned off Precedex and he was extubated that night. On 07/27 postoperative day 1, patient continued to have multiple vagal episodes and was started on p.o. midodrine. Pleural chest tubes were removed. On
07/28 postoperative day 2 beta-blockers and calcium channel blockers were still on hold but Levophed was weaned off. On 07/29 postoperative day 3, epicardial wires were pulled along with mediastinal chest tubes. Patient reported improved symptoms
and was able to ambulate in the halls. He was also given 20 mg of IV Lasix. On 07/30 postoperative day 4 patient was given 1 unit of packed red blood cells and diuresed with 40 mg of IV Lasix. On 07/30 postoperative day 5, patient tolerated
ambulation in the hallways without symptoms. He was deemed stable for discharge home without beta-blockers and Norvasc. He will be on midodrine at home and our transitional care nurses will follow-up.
Home medication changes:
see below
Discharge Plan
-
Patient Disposition: Home (Routine Discharge)
Discharge Diagnosis/Procedures: CORDERO to LAD, Ao to Radial to OM1 sequential to OM3, Ao to RSVG to LPL) on 07/26/27
Condition: Good
Diet: Low Cholesterol
Activity: No strenuous activity
Driving Restrictions: Not until seen by your Dr
Bathing Restrictions: OK to Shower
Blood Work: BMP in one week
Other Services: Cardiac Rehab
Specialty Instructions: Weigh Daily- Call MD for wt gain/loss 3 lbs overnight/5 lbs in 1 week
Activity Restrictions/Additional Instructions:
ACTIVITY:
-No strenuous activity: no heavy lifting, pushing, pulling anything over 15 pounds for one month
-continue to use stairs as tolerated
DRIVING RESTRICTIONS:
-No driving for one month or until approved by your surgeon
WOUND CARE:
-Shower daily. Use soap & water.
-No lotions, creams or powders on incision area.
DIET:
-continue a low fat/low cholesterol diet.
-IF you are diabetic, continue carb controlled diet.
CARDIAC REHAB:
-Please make appointment to start in 5-6 weeks with your local hospital program. (See Cardiac Rehabilitation Discharge Booklet).
SPECIALTY INSTRUCTIONS:
-Weigh yourself daily. Call your physician for any weight gain/loss of 3 lbs overnight or 5 lbs in one week.
-REPORT any clicking noise or uneven appearance of your sternum to your surgeon immediately.
-If you smoke, you are instructed to quit. The [facility] smoking hotline phone number is [phone]
Referrals:
CT Transitional Care Nurse [Outside]
Referral Note: The Cardiothoracic Transitional Care Nurse will call you to set up a visit in 1-2 days.
[facility] [Outside] - 09/02/25 10:00 am
Referral Note: Cardiac Rehab Orientation appointment is on Sep 02 @ 10 am
The Cardiac Rehab gym is located on the first floor of the [facility].
Swapna Arreguin PA-C [Specified Professional Personl, Cardiology] - 09/02/25 2:00 pm
Queta Jenkins MD [Family Provider, Internal Medicine]
Edward Martinez MD [Active, Cardiac Surgery] - 08/26/25 2:30 pm
Additional Discharge Medication Instructions: You will be on midodrine due to your episodes of dizziness. You are not on betablockers or calcium channel blockers after your surgery due to low blood pressures.
Prescriptions:
New
acetaminophen 325 mg Tablet
650 mg PO Q4HPRN PRN (Reason: mild pain,headache,temp >101F ) Qty: 0 0RF
midodrine 5 mg Tablet
10 mg PO TID@0800,1300,1800 Qty: 30 0RF
clopidogrel 75 mg Tablet
75 mg PO DAILY Qty: 30 0RF
oxycodone 5 mg Tablet
2.5 mg PO Q4HPRN PRN (Reason: mild to severe pain) Qty: 15 0RF
potassium chloride 20 mEq Tablet,Er Particles/Crystals
20 meq PO DAILY Qty: 7 0RF
pantoprazole 40 mg Tablet,Delayed Release (Dr/Ec)
40 mg PO DAILY Qty: 60 0RF
furosemide [Lasix] 40 mg tablet
40 mg PO DAILY Qty: 7 0RF
Continued
latanoprost 0.005 % Drops
1 drp OPHTHALMIC (EYE) HS
venlafaxine 75 mg Capsule,Extended Release 24hr
150 mg PO DAILY
metformin 1,000 mg Tablet
1,000 mg PO BID
timolol maleate (PF) 0.5 % Dropperette
1 drp OPHTHALMIC (EYE) DAILY
rosuvastatin 40 mg Tablet
40 mg PO DAILY
silodosin 8 mg Capsule
8 mg PO DAILY
ipratropium bromide 42 mcg (0.06 %) [place],Non-Aerosol
1 spray INTRANASAL R BID
ezetimibe 10 mg Tablet
10 mg PO DAILY
Ryaltris 665-25 mcg/spray [place],Non-Aerosol
2 spray INTRANASAL BID
aspirin 81 mg Tablet,Chewable
81 mg PO DAILY
Praluent Pen 75 mg/mL Pen Injector
75 mg SC Q14D
vitamin D3-vitamin K2 125 mcg (5,000 unit)-180 mcg Capsule
1 cap PO DAILY
polyethylene glycol 3350 [Miralax] 17 gram/dose Powder
4 g PO DAILY PRN (Reason: constipation)
cyanocobalamin (vitamin B-12) 200 mcg/spray [place],Suspension
3 spray SUBLINGUAL DAILY
Held
omega 1-rpn-aej-fish oil [Fish Oil] 1,000 mg (120 mg-180 mg) Capsule
1 cap PO DAILY
Hold Instructions: Resume on 08/07/25.
tadalafil [Cialis] 10 mg Tablet
10 mg PO DAILY PRN (Reason: ED)
Hold Instructions: hold for at least one month
Discharge Orders:
Discharge Patient (As Directed); Ordered 07/31/25
Ordered By: Lexie Ramires
Care Plan Goals
Care Plan Goals:
Problem: Readiness for enhanced knowledge related to diagnosis and treatment plan
Goal: Understand your diagnosis and treatment plan needs, including medications if applicable.
Instructions: Know your diagnosis, underlying causes and treatment plan options, including medications if applicable. Consult with your health care team to learn about your diagnosis and treatment plan, including medications if applicable.
Discharge Date and Time
Discharge Date/Time: 07/31/25 16:28
Print Language: SOMALI
--- NOTE | 2025-07-31 13:55 | W.PN.CARDCBS ---
Addendum entered and electronically signed by Gibson Mathew MD 07/31/25 14:13:
I saw and examined the patient.
The PRODUCT BUILDER or PA's note was reviewed and I agree with the note.
Comment: General: Well developed, well nourished in NAD.
Neck: Supple, no JVD, HJR, carotids +2 B/L, no bruits bilaterally.
Heart: Non displaced PMI, RRR, no murmurs, No S3, S4, no rubs.
Lungs: Scattered rhonchi
Sternal dressings noted
Extremities: No clubbing, cyanosis or edema bilaterally.
Neuro: Grossly nonfocal, awake, alert and oriented x3.
Stable cardiology status for discharge on midodrine. Blood pressure meds have been held and may be able to be started as an outpatient. Discussed with CT surgery
Original Note:
Today's Communication / Plan
-
Dizziness improved
Continue midodrine
In sinus rhythm
Hopefully can start low-dose beta-denisa/Norvasc in outpatient setting pending blood pressure trend in next 1 to 2 weeks
Continue aspirin, Plavix
Cardiac rehab
Impression / Plan
-
PCP: Dr. Jenkins
Primary cooking show host: Dr. Urvashi Sanchez
Impression:
Admitted for planned CABG 07/26/25
CAD
s/p OM PCI 2005 with residual disease
s/p In situ CORDERO to LAD, Ao to Radial to OM1 sequential to OM3, Ao to RSVG to LPL, BUBBA clip 07/26/25
HTN
HLD with elevated LP(a)
DM2
AAA s/p endovascular repair with aortoiliac endograft 12/2024
History of vasovagal syncope
Chronic sinus bradycardia
VIKY
Carotid artery disease
Alpha 1 anti-trypsin PIMS phenotype
ECHO 07/01/25: EF 55%, MAC, trace MR, normal right heart, PAP 27 mmHg, ascending aorta 3.8 cm, suspected atherosclerosis of aortic arch
LISBETH 07/26/2025: Intraoperative study, normal LV size and function without WMA, postop EF 55 to 60% without WMA
Plan:
-Unstable angina with abnormal outpatient stress test found to have multivessel coronary disease on cardiac catheterization now status post S/P In situ CORDERO to LAD, Ao to Radial to OM1 sequential to OM3, Ao to RSVG to LPL) on 07/26/[address] Martinez�
- Had postop orthostatic hypotension. Remains on midodrine 10 mg 3 times daily.
- Norvasc and beta-denisa are presently on hold and remains SR/SB on review of tele overnight. P.o. amiodarone dose reduced to 200 mg twice daily due to relative bradycardia
- Reports symptoms of dizziness are resolved status post 1 unit packed red blood cells and 40 mg IV Lasix. States is feeling great
- Replete potassium
- Continue aspirin, Plavix. Follow hemoglobin as outpatient
- Continue cardiac rehab
- OP cardiac follow up arranged
- planned for DC later today vs in AM
- d/w CT surgery
Progress Note - Baby Counselor
Subjective
Date of Service: July 31, 2025
Feeling well. Reports dizziness resolved
Objective
Labs:
07/31/25 04:02
07/31/25 04:02
Labs
Hgb 8.8 g/dL (13.0-18.0) L 07/31/25 04:02
Hct 28.0 % (39.0-52.0) L 07/31/25 04:02
Plt Count 151 10^3/uL (130-400) D 07/31/25 04:02
PT 16.8 Sec (11.4-14.6) H 07/26/25 11:56
INR 1.33 07/26/25 11:56
APTT 31.9 Sec (23.4-35.0) 07/26/25 11:56
Sodium 137 mmol/L (135-145) 07/31/25 04:02
Potassium 3.4 mmol/L (3.5-5.1) L 07/31/25 04:02
BUN 17 mg/dl (9-20) 07/31/25 04:02
Creatinine 0.9 mg/dL (0.7-1.3) 07/31/25 04:02
Glucose 102 mg/dl (70-99) H 07/31/25 04:02
Vital Signs and I&O:
Vital Signs
Temp Pulse Resp BP Pulse Ox
97.8 F 59 18 93/65 98
07/31/25 12:13 07/31/25 12:13 07/31/25 12:13 07/31/25 12:01 07/31/25 12:13
Vital Signs
Temp Pulse Resp BP Pulse Ox
97.8 F 59 18 93/65 98
07/31/25 12:13 07/31/25 12:13 07/31/25 12:13 07/31/25 12:01 07/31/25 12:13
Intake & Output
07/29/25 07/30/25 07/31/25 08/01/25
07:59 07:59 07:59 07:59
Intake Total 1380 / 1380 480 / 480 370 / 610 240 / 240
Output Total 710 / 710 2375 / 2375 1550 / 1800 1600 / 1600
Balance 670 / 670 -1895 / -1895 -1180 / -1190 -1360 / -1360
Physical Exam
Physical Exam
GEN: No distress, awake, alert, oriented x3
HEENT: supple, anicteric, mmm, EOMI
LUNGS: CTA bilaterally, no wheezes/rales
CV: Reg, S1/S2, no murmur
ABD: soft, BS+, NT/ND
EXT: No cyanosis, clubbing, edema
NEURO: Gross non-focal
SKIN: Warm, pink, dry. No rash. Sternotomy incision clean dry and intact
--- NOTE | 2025-07-31 14:26 | PTCARENOTE ---
Patient showered. Chest tube dressings removed open to air. Skin tear small on the right abdomen. Right radial dressing removed. Right neck dressing CDI. Sternal incision glued and approximated. Left radial site glued and approximated. Right inner
thigh small incision, glued and approximated. Patient tolerated showering. In chair, assisted with dressing. Call batres in reach
--- NOTE | 2025-07-31 15:04 | PN.CDI ---
CDI
- -
CDI:
Physician Documentation Request
Admit Date: 07/26/25 05:[address] Surgery,
Patient admitted fo CAD.
07/31 CT Surgery PN:'gavee 40 KCL po for K 3.4 this am'
Based on the above, could you clarify in the progress notes, the appropriate diagnosis, if significant, that supports the above abnormalities and additional evaluation, monitoring and/or treatment rendered:
Hypokalemia
Abnormal lab value insignificant
Other
Use of terms such as suspected, likely, concern for, or probable (associated with a specific diagnosis that is being evaluated, monitored, or treated as if it exists) are acceptable and can be coded in the inpatient setting, when documented at the
time of discharge.
Thank you,
Debra Jerez RN, BSN
CDI Specialist
Available via [place] text
Please use your independent medical judgment in providing your response.
--- NOTE | 2025-07-31 16:21 | W.PN.UPDATE ---
Update Note
Progress Note Update
CDI query
#Hypokalemia
--- NOTE | 2025-07-31 16:25 | PTCARENOTE ---
Patient discharged to home. Instructions reviewed with patient and spouse. They verbalized understanding. IV and telemetry removed. Patient escorted to main [facility] in a wheelchair
== END 2025-07-31 16:28 | disposition home or self-care (01) | DRG 235 ==
LOC: IVU 05:08
PROVIDERS: Clinical Nurse Specialist Acute Care; Physician Assistant Medical; ADMITTING PHYSICIAN Thoracic Surgery (Cardiothoracic Vascular Surgery); FAMILY PHYSICIAN Internal Medicine; OTHER PHYSICIAN Internal Medicine
PROC: 0210093 Bypass Coronary Artery, One Artery from Coronary Artery with Autologous Venous Tissue, Open Approach (ICD-10-PCS; 2025-07-26)
PROC: 02110A3 Bypass Coronary Artery, Two Arteries from Coronary Artery with Autologous Arterial Tissue, Open Approach (ICD-10-PCS; 2025-07-26)
PROC: 02L70CK Occlusion of Left Atrial Appendage with Extraluminal Device, Open Approach (ICD-10-PCS; 2025-07-26)
PROC: 03BC4ZZ Excision of Left Radial Artery, Percutaneous Endoscopic Approach (ICD-10-PCS; 2025-07-26)
PROC: 06BP4ZZ Excision of Right Saphenous Vein, Percutaneous Endoscopic Approach (ICD-10-PCS; 2025-07-26)
PROC: 02100Z9 Bypass Coronary Artery, One Artery from Left Internal Mammary, Open Approach (ICD-10-PCS; 2025-07-26)
PROC: 5A1221Z Performance of Cardiac Output, Continuous (ICD-10-PCS; 2025-07-26)
PROC: B24BZZ4 Ultrasonography of Heart with Aorta, Transesophageal (ICD-10-PCS; 2025-07-26)
PROC: 30233N1 Transfusion of Nonautologous Red Blood Cells into Peripheral Vein, Percutaneous Approach (ICD-10-PCS; 2025-07-30)
DX: I25.110 Atherosclerotic heart disease of native coronary artery with unstable angina pectoris (principal); J95.1 Acute pulmonary insufficiency following thoracic surgery; D62 Acute posthemorrhagic anemia; J98.11 Atelectasis; I48.91 Unspecified atrial fibrillation; I10 Essential (primary) hypertension; E11.9 Type 2 diabetes mellitus without complications; I71.40 Abdominal aortic aneurysm, without rupture, unspecified; G47.33 Obstructive sleep apnea (adult) (pediatric); D69.59 Other secondary thrombocytopenia; I70.0 Atherosclerosis of aorta; H40.9 Unspecified glaucoma; N40.0 Benign prostatic hyperplasia without lower urinary tract symptoms; E88.01 Alpha-1-antitrypsin deficiency; F32.A Depression, unspecified; K76.0 Fatty (change of) liver, not elsewhere classified; E87.6 Hypokalemia; E86.1 Hypovolemia; E87.70 Fluid overload, unspecified; R00.1 Bradycardia, unspecified; I95.81 Postprocedural hypotension; Z95.5 Presence of coronary angioplasty implant and graft; Z88.8 Allergy status to other drugs, medicaments and biological substances; Z79.82 Long term (current) use of aspirin; Z86.0100 Personal history of colon polyps, unspecified; Z86.19 Personal history of other infectious and parasitic diseases; Z79.84 Long term (current) use of oral hypoglycemic drugs; Z80.0 Family history of malignant neoplasm of digestive organs; Z82.49 Family history of ischemic heart disease and other diseases of the circulatory system; Z79.899 Other long term (current) drug therapy
CPT/HCPCS: 36415; 71045; 71046; 71275; 74174; 80048; 80053; 81003; 81015; 82248; 82330; 82565; 82805; 82947; 82962; 83036; 83735; 84132; 84302; 84520; 85014; 85018; 85025; 85027; 85049; 85610; 85730; 86850; 86900; 86901; 86920; 87070; 87086; 93005; 93312; 93320; 93325; 93923; 93930; 94002; J2916; P9016; P9045; P9047; Q9967

== ENCOUNTER 2025-09-06 13:20 | Outpatient (RCR) | payer MEDICARE, SELFPAY ==
[2025-09-02 10:53] LABS: Glucose - Point of Care 108 mg/dl (70-99)
[2025-09-02 11:40] LABS: Glucose - Point of Care 99 mg/dl (70-99)
[2025-09-04 13:15] LABS: Glucose - Point of Care 109 mg/dl (70-99)
[2025-09-04 14:27] LABS: Glucose - Point of Care 117 mg/dl (70-99)
[2025-09-06 13:08] LABS: Glucose - Point of Care 110 mg/dl (70-99)
[2025-09-06 14:01] LABS: Glucose - Point of Care 110 mg/dl (70-99)
== END 2025-09-06 23:59 | disposition home or self-care (01) ==
LOC: CRHB 13:20
PROVIDERS: ATTENDING PHYSICIAN Internal Medicine Cardiovascular Disease
DX: Z95.1 Presence of aortocoronary bypass graft (principal); I25.10 Atherosclerotic heart disease of native coronary artery without angina pectoris (principal)
CPT/HCPCS: 82962; G0422; G0423

== ENCOUNTER → 2025-09-30 11:12 | Outpatient (REF) | payer MEDICARE, SELFPAY | LOC: PAVMRI 11:12 | PROVIDERS: ATTENDING PHYSICIAN Surgery Surgical Oncology; FAMILY PHYSICIAN Internal Medicine | DX: K86.2 Cyst of pancreas (principal) | CPT/HCPCS: 74183; A9575 ==

== ENCOUNTER 2025-10-09 10:03 | Outpatient (RCR) | payer MEDICARE, SELFPAY ==
[2025-09-09 13:17] LABS: Glucose - Point of Care 118 mg/dl (70-99)
[2025-09-09 14:15] LABS: Glucose - Point of Care 108 mg/dl (70-99)
[2025-09-11 13:13] LABS: Glucose - Point of Care 112 mg/dl (70-99)
[2025-09-11 14:12] LABS: Glucose - Point of Care 99 mg/dl (70-99)
[2025-09-18 13:07] LABS: Glucose - Point of Care 111 mg/dl (70-99)
[2025-09-18 14:08] LABS: Glucose - Point of Care 96 mg/dl (70-99)
== END 2025-10-09 23:59 | disposition home or self-care (01) ==
LOC: CRHB 10:03
PROVIDERS: ATTENDING PHYSICIAN Internal Medicine Cardiovascular Disease
DX: Z95.1 Presence of aortocoronary bypass graft (principal); I25.10 Atherosclerotic heart disease of native coronary artery without angina pectoris
CPT/HCPCS: 82962; G0422; G0423